=== PATIENT | male | born 1940 | race Caucasian/White ===

== ENCOUNTER → 2017-03-30 09:08 | Outpatient (CLI) | payer MEDICARE, SELFPAY ==
[2017-03-30 10:29] LABS: AST(SGOT) 25 U/L (15-37); Alanine Aminotransfer ALT/SGPT 28 U/L (16-61); Albumin, Serum 3.7 g/dL (3.2-5.0); Alkaline Phosphatase 73 U/L (45-117); Cholesterol 136 mg/dL (200); Globulin 3.2 g/dL (2.2-4.2); High Density Lipoprotein 42 mg/dL; Protein, Total 6.9 g/dL (6.4-8.2); Triglycerides 104 mg/dL; Very Low Density Lipoprotein 21 mg/dL (5-40)
== END ==
PROVIDERS: Visit Provider Physician Assistant Medical
DX: E78.5 Hyperlipidemia, unspecified (principal); Z79.899 Other long term (current) drug therapy
CPT/HCPCS: 36415; 80061; 80076

== ENCOUNTER → 2017-07-22 12:54 | Outpatient (CLI) | payer MEDICARE, SELFPAY | PROVIDERS: Visit Provider Internal Medicine Cardiovascular Disease | DX: R00.1 Bradycardia, unspecified (principal) | CPT/HCPCS: 93225; 93226 ==

== ENCOUNTER → 2017-09-28 08:36 | Outpatient (CLI) | payer MEDICARE, SELFPAY ==
[2017-09-28 09:25] LABS: AST(SGOT) 26 U/L (15-37); Alanine Aminotransfer ALT/SGPT 26 U/L (16-61); Albumin, Serum 3.9 g/dL (3.2-5.0); Alkaline Phosphatase 78 U/L (45-117); Bilirubin, Direct 0.21 mg/dL (0.00-0.30); Cholesterol 152 mg/dL (200); Globulin 3.4 g/dL (2.2-4.2); High Density Lipoprotein 51 mg/dL; Protein, Total 7.3 g/dL (6.4-8.2); Triglycerides 77 mg/dL; Very Low Density Lipoprotein 15 mg/dL (5-40)
== END ==
PROVIDERS: Visit Provider Physician Assistant Medical
DX: E78.5 Hyperlipidemia, unspecified (principal); Z79.899 Other long term (current) drug therapy
CPT/HCPCS: 36415; 80061; 80076

== ENCOUNTER 2018-02-11 05:26 | Day surgery (SDC) | payer MEDICARE, SELFPAY ==
[2018-02-05 14:55] VITALS: BMI 22.5
[2018-02-11] VITALS (7 sets, daily range): BP systolic 88–116; BP diastolic 48–59; PULSE 45–51; RESP 16–18; TEMP 35.9–36.6; O2SAT 98–100; BMI 21.6
--- NOTE | 2018-02-11 06:30 | EGD_PTH ---
PATIENT: BARRY VERGARA LOC: EN U#:[id number] AGE/SX: 77/M ROOM: RE02/11/[address]: Dr. Jarrod Gonzalez MD : 1940 BED: DIS: 02/11/2018 SPEC #: [id number] RECD: 02/11/18 07:44 STATUS: IRA KACEY #: [id number] CASS: 02/11/18 06:[address]: Jarrod Gonzalez DEPT: SURGICAL PATHOLOGY RECD BY: Lauro Martinez ENTERED: 02/11/18 11:27 SP TYPE: EGD BIOPSY OT DR: Dr. Froilan Cain MD Tissues: A - Gastric mucous membrane B - Esophageal mucous membrane Procedures: Special Stain Group II Surgery Specimen Level IV Alcian Blue/PAS (control) HEADER OPERATION: Colonoscopy, EGD ([facility] [place]) PRE-OP DIAGNOSIS: Positive Cologuard TISSUE SUBMITTED: A - Biopsy gastric antrum, H. pylori and path, B - Biopsy distal esophagus MICROSCOPIC DIAGNOSIS A. Gastric antrum, biopsy: Superficial fragments of gastric mucosa with minimal chronic inflammation. B. Distal esophagus, biopsy: Fragments of gastroesophageal mucosa with mild chronic inflammation. Intestinal metaplasia (goblet cell metaplasia) is not identified. See comment. SJ:rg 02/12/18 COMMENT A. The results of immunohistochemistry for Helicobacter pylori will be reported separately ([id number]). B. The specimen predominantly consists of squamous mucosa. Alcian blue/PAS stain with matched control is used in the evaluation of the specimen. MICROSCOPIC DESCRIPTION Slides are reviewed. GROSS DESCRIPTION A - Received in fixative is one container labeled with the patient's name and designated biopsy gastric antrum. The specimen consists of multiple irregular fragments of light [place]isi soft tissue that in aggregate measure 0.5 x 0.1 x 0.1 cm. The specimen is totally submitted in one cassette. B - Received in fixative is one container labeled with the patient's name and designated biopsy distal esophagus. The specimen consists of two irregular fragments of light parisi soft tissue that in aggregate measure 0.3 x 0.2 x 0.1 cm. The specimen is totally submitted in one cassette. / KOLBY:malia 02/11/18 TC:4 CPT: 07445 x2, 32101
--- NOTE | 2018-02-11 06:30 | IMM_PTH ---
PATIENT: BARRY VERGARA LOC: EN U#:[id number] AGE/SX: 77/M ROOM: RE02/11/[address]: Dr. Jarrod Gonzalez MD : 1940 BED: DIS: 02/11/2018 SPEC #: [id number] RECD: 02/11/18 13:29 STATUS: IRA REDel #: [id number] CASS: 02/11/18 06:[address]: Jarrod Gonzalez DEPT: IMMUNOHISTOCHEMISTRY RECD BY: Carla De Paz ENTERED: 02/11/18 13:29 SP TYPE: IMMUNO OTHR DR: Dr. Froilan Cain MD Tissues: A - Stomach, NOS Procedures: H Pylori (initial) PHYSICIAN & INSTITUTION [place] [id number] SPECIMEN INFORMATION: Tissue Source: A - Gastric antrum biopsy Clinical Info: Positive Cologuard Specimen Number: [id number] CPT code: 34791 METHODOLOGY: Deparaffinized sections of prefer/formalin-fixed tissue or PAP/DQ stained slides are incubated with monoclonal/polyclonal antibodies/oligonucleotide probes. Localization is made via biotin free immunoperoxidase method. Appropriate controls are performed and reacted as expected. Results on target cell population are indicated in the following table: RESULTS: ANTIBODY / CLONE RESULT Block A H Pylori (polyclonal) negative These tests were developed and their performance characteristics determined by [facility]. They may not have been cleared or approved by the [place]. Food and Drug Administration. The FDA has determined that such clearance or approval is not necessary. INTERPRETATION: A. Gastric antrum, biopsy: Negative for Helicobacter pylori organisms. SJ:malia 02/12/18
--- NOTE | 2018-02-11 06:59 | OP.ENDO_ITS ---
Patient Name: Larry Fofana Procedure Date: 02/11/2018 6:03 AM Date of : 1940 Age: 77 Procedure: Upper GI endoscopy Indications: Cologuard positive Providers: Jarrod Gonzalez MD Referring MD: Jarrod Gonzalez MD Medicines: See the Anesthesia note for documentation of the administered medications Complications: No immediate complications. Procedure: Pre-Anesthesia Assessment: - Prior to the procedure, a History and Physical was performed, and patient medications and allergies were reviewed. The patient's tolerance of previous anesthesia was also reviewed. The risks and benefits of the procedure and the sedation options and risks were discussed with the patient. All questions were answered, and informed consent was obtained. Prior Anticoagulants: The patient has taken no previous anticoagulant or antiplatelet agents. ASA Grade Assessment: II - A patient with mild systemic disease. After reviewing the risks and benefits, the patient was deemed in satisfactory condition to undergo the procedure. After obtaining informed consent, the endoscope was passed under direct vision. Throughout the procedure, the patient's blood pressure, pulse, and oxygen saturations were monitored continuously. The gastroscope was introduced through the mouth, and advanced to the second part of duodenum. The upper GI endoscopy was accomplished without difficulty. The patient tolerated the procedure well. Scope In: 6:29:04 AM Scope Out: 6:33:17 AM Total Procedure Duration Time 0 hours 4 minutes 13 seconds Findings: The Z-line was regular and was found 41 cm from the incisors. Biopsies were taken with a cold forceps for histology. A small hiatal hernia was present. Diffuse mildly erythematous mucosa without bleeding was found in the gastric antrum. Biopsies were taken with a cold forceps for histology. The examined duodenum was normal. Impression: - Z-line regular, 41 cm from the incisors. Biopsied. - Small hiatal hernia. - Erythematous mucosa in the antrum. Biopsied. - Normal examined duodenum. Recommendation: - Discharge patient to home. - Resume previous diet. - Continue present medications. - Telephone my office for pathology results in 1 week. Procedure Code(s): --- Professional --- 53120, Esophagogastroduodenoscopy, flexible, transoral; with biopsy, single or multiple Diagnosis Code(s): --- Professional --- K44.9, Diaphragmatic hernia without obstruction or gangrene K31.89, Other diseases of stomach and duodenum CPT copyright 2017 [employer]. All rights reserved. The codes documented in this report are preliminary and upon demurrage clerk review may be revised to meet current compliance requirements. Jarrod Gonzalez MD 02/11/2018 6:58:53 AM This report has been signed electronically. Number of Addenda: 0 Note Initiated On: 02/11/2018 6:03 AM
--- NOTE | 2018-02-11 07:01 | OP.ENDO_ITS ---
Patient Name: Larry Fofana Procedure Date: 02/11/2018 6:34 AM Date of : 1940 Age: 77 Procedure: Colonoscopy Indications: Positive Cologuard test Providers: Jarrod Gonzalez MD Referring MD: Jarrod Gonzalez MD Medicines: See the Anesthesia note for documentation of the administered medications Patient Profile: Last Colonoscopy: more than 10 years ago. Complications: No immediate complications. Procedure: Pre-Anesthesia Assessment: - Prior to the procedure, a History and Physical was performed, and patient medications and allergies were reviewed. The patient's tolerance of previous anesthesia was also reviewed. The risks and benefits of the procedure and the sedation options and risks were discussed with the patient. All questions were answered, and informed consent was obtained. Prior Anticoagulants: The patient has taken no previous anticoagulant or antiplatelet agents. ASA Grade Assessment: II - A patient with mild systemic disease. After reviewing the risks and benefits, the patient was deemed in satisfactory condition to undergo the procedure. After I obtained informed consent, the scope was passed under direct vision. Throughout the procedure, the patient's blood pressure, pulse, and oxygen saturations were monitored continuously. The colonoscope was introduced through the anus and advanced to the cecum, identified by appendiceal orifice and ileocecal valve. The colonoscopy was performed without difficulty. The patient tolerated the procedure well. The quality of the bowel preparation was good. The ileocecal valve and the appendiceal orifice were photographed. Scope In: 6:36:17 AM Scope Withdrawal Time 0 hours 6 minutes 37 seconds Scope Out: 6:52:42 AM Total Procedure Duration Time 0 hours 16 minutes 25 seconds Findings: Hemorrhoids were found on perianal exam. Scattered diverticula were found in the sigmoid colon. The exam was otherwise without abnormality. Impression: - Hemorrhoids found on perianal exam. - Diverticulosis in the sigmoid colon. - The examination was otherwise normal. - No specimens collected. Recommendation: - Discharge patient to home. - Resume previous diet. - Telephone my office for pathology results in 1 week. - Repeat colonoscopy in 10 years for screening purposes. - Continue present medications. Procedure Code(s): --- Professional --- 59577, Colonoscopy, flexible; diagnostic, including collection of specimen(s) by brushing or washing, when performed (separate procedure) Diagnosis Code(s): --- Professional --- K64.9, Unspecified hemorrhoids R19.5, Other fecal abnormalities K57.30, Diverticulosis of large intestine without perforation or abscess without bleeding CPT copyright 2017 [employer]. All rights reserved. The codes documented in this report are preliminary and upon increment manager review may be revised to meet current compliance requirements. Jarrod Gonzalez MD 02/11/2018 7:01:41 AM This report has been signed electronically. Number of Addenda: 0 Note Initiated On: 02/11/2018 6:34 AM
--- OUTSIDE RECORDS SUMMARY | 2018-03-30 00:05 | XMS RPT_ITS ---
:1940 Author Organization [facility] Support Name Relationship Address Phone STEPHANIA VERGARA Unavailable [address] + [place] [address] STEPHANIA VERGARA Unavailable [address] [address] + [place] [address] STEPHANIA VERGARA Unavailable [address] + [address] [place] [address] R Unavailable Unavailable Unavailable STEPHANIA VERGARA Unavailable [address] [address] + [address] [place] [address] R Unavailable Unavailable Unavailable STEPHANIA VERGARA Unavailable [address] [address] + [address] [place] [address] R Unavailable Unavailable Unavailable STEPHANIA VERGARA Unavailable [address] [address] + [address] [place] [address] R Unavailable Unavailable Unavailable STEPHANIA VERGARA Unavailable [address] + [address] [place] [address] R Unavailable Unavailable Unavailable STEPHANIA VERGARA Unavailable [address] + [address] [place] [address] R Unavailable Unavailable Unavailable STEPHANIA VERGARA Unavailable [address] + [address] [place] [address] R Unavailable Unavailable Unavailable STEPHANIA VERGARA Unavailable [address] + [address] [place] [address] R Unavailable Unavailable Unavailable STEPHANIA VERGARA Unavailable [address] + [address] [place] [address] R Unavailable Unavailable Unavailable STEPHANIA VERGARA Unavailable [address] + [place] [address] STEPHANIA VERGARA Unavailable [address] [place] [address] + [place] [address] STEPHANIA VERGARA Unavailable [address] [address] + [address] [place] [address] R Unavailable Unavailable Unavailable Care Team Providers Name Role Phone Jarrod Gonzalez Attending Unavailable Lisa, Jarrod Referring Unavailable Froilan Cain Primary Care Unavailable Lisa, Jarrod Attending Unavailable Whitley Cisneros Attending Unavailable Primay Care Physicia, No Primary Care Unavailable Whitley Dominguez Attending Unavailable MoodispaFroilan osorio Attending Unavailable Ba Reyes Referring Unavailable Primay Care Physicia, No Primary Care Unavailable Froilan Sigala Attending Unavailable Zakiya, Froilan Referring Unavailable Primay Care Physicia, No Primary Care Unavailable Froilan Sigala Attending Unavailable Zakiya, Froilan Referring Unavailable Whitley Cisneros Attending Unavailable Whitley Cisneros Referring Unavailable Primay Care Physicia, No Primary Care Unavailable Whitley Cisneros Attending Unavailable Primay Care Physicia, No Referring Unavailable Cebul, Jarrod Attending Unavailable Primay Care Physicia, No Referring Unavailable ZANE LAIRD MD Attending Unavailable PHYSICIAN, NONE Primary Care Unavailable SOTO STOVALL MD Attending Unavailable ANNELIESE PEREZ, DR. FROILAN Baca Primary Care Unavailable Bob Whalen Attending Unavailable PROBLEMS PROBLEMS DATE TYPE CONDITION / CODE ATTENDING STATUS SOURCE 03/16/2018 Unknown R19.5 - Other fecal Cebul, Jarrod Active [facility] abnormalities / Community R19.5(ICD-10) Hospital Repository 03/16/2018 Unknown K64.9 - Unspecified Cebul, Jarrod Active [facility] hemorrhoids / Community K64.9(ICD-10) Hospital Repository 03/16/2018 Unknown K57.30 - Cebul, Jarrod Active [facility] Diverticulosis of Community large intestine Hospital without perforation Repository or abscess without bleeding / K57.30(ICD-10) 03/16/2018 Unknown K44.9 - Cebul, Jarrod Active [facility] Diaphragmatic hernia Community without obstruction Hospital or gangrene / Repository K44.9(ICD-10) 03/16/2018 Unknown K31.89 - Other Cebul, Jarrod Active [facility] diseases of stomach Community and duodenum / Hospital K31.89(ICD-10) Repository 12/01/2017 Admitting Unknown / Koby, Active [facility] 09/28/2017 Unknown E78.5 - Cisneros, Active [facility] Hyperlipidemia, Whitley Valencia [facility] unspecified / Hospital E78.5(ICD-10) Repository 09/28/2017 Unknown Z79.899 - Other long Cisneros, Active [facility] term (current) drug [facility] therapy / Hospital Z79.899(ICD-10) Repository 08/28/2017 Unknown R00.1 - Bradycardia, [place], Active [facility] unspecified / [facility] R00.1(ICD-10) Hospital Repository 07/20/2017 Unknown I10 - Essential [place], Active [facility] (primary) [facility] hypertension / Hospital I10(ICD-10) Repository 07/20/2017 Unknown I25.2 - Old [place], Active [facility] myocardial [facility] infarction / Hospital I25.2(ICD-10) Repository 07/20/2017 Unknown Z95.5 - Presence of [place], Active [facility] coronary angioplasty [facility] implant and graft / Hospital Z95.5(ICD-10) Repository 07/20/2017 Unknown I25.10 - [place], Active [facility] Atherosclerotic [facility] heart disease of Hospital jena coronary Repository artery without angina pectoris / I25.10(ICD-10) PROCEDURES PROCEDURES No Procedure Records FoundRESULTS RESULTS OPERATIVE REPORT - Observed: 02/11/2018 Status: F Source: [facility] 7:01 AM [facility] REPOSITORY [facility] Medical Records Department [address] [place] [address] Operative Report - Endoscopy MR#: [id number] Acct: [id number] Name: BARRY VERGARA Rep #: [id number] : 1940 77 From: Jarrod Gonzalez MD PCP: Froilan Cain MD Status: [facility] Patient Name: Barry Vergara Procedure Date: 02/11/2018 6:34 AM Date of : 1940 Age: 77 Procedure: Colonoscopy Indications: Positive Cologuard test Providers: Jarrod Gonzalez MD Referring MD: Jarrod Gonzalez MD Medicines: See the Anesthesia note for documentation of the administered medications Patient Profile: Last Colonoscopy: more than 10 years ago. Complications: No immediate complications. Procedure: Pre-Anesthesia Assessment: - Prior to the procedure, a History and Physical was performed, and patient medications and allergies were reviewed. The patient's tolerance of previous anesthesia was also reviewed. The risks and benefits of the procedure and the sedation options and risks were discussed with the patient. All questions were answered, and informed consent was obtained. Prior Anticoagulants: The patient has taken no previous anticoagulant or antiplatelet agents. ASA Grade Assessment: II - A patient with mild systemic disease. After reviewing the risks and benefits, the patient was deemed in satisfactory condition to undergo the procedure. After I obtained informed consent, the scope was passed under direct vision. Throughout the procedure, the patient's blood pressure, pulse, and oxygen saturations were monitored continuously. The colonoscope was introduced through the anus and advanced to the cecum, identified by appendiceal orifice and ileocecal valve. The colonoscopy was performed without difficulty. The patient tolerated the procedure well. The quality of the bowel preparation was good. The ileocecal valve and the appendiceal orifice were photographed. Scope In: 6:36:17 AM Scope Withdrawal Time 0 hours 6 minutes 37 seconds Scope Out: 6:52:42 AM Total Procedure Duration Time 0 hours 16 minutes 25 seconds Findings: Hemorrhoids were found on perianal exam. Scattered diverticula were found in the sigmoid colon. The exam was otherwise without abnormality. Impression: - Hemorrhoids found on perianal exam. - Diverticulosis in the sigmoid colon. - The examination was otherwise normal. - No specimens collected. Recommendation: - Discharge patient to home. - Resume previous diet. - Telephone my office for pathology results in 1 week. - Repeat colonoscopy in 10 years for screening purposes. - Continue present medications. Procedure Code(s): --- Professional --- 01828, Colonoscopy, flexible; diagnostic, including collection of specimen(s) by brushing or washing, when performed (separate procedure) Diagnosis Code(s): --- Professional --- K64.9, Unspecified hemorrhoids R19.5, Other fecal abnormalities K57.30, Diverticulosis of large intestine without perforation or abscess without bleeding CPT copyright 2017 [employer]. All rights reserved. The codes documented in this report are preliminary and upon welfare project manager review may be revised to meet current compliance requirements. Jarrod Gonzalez MD 02/11/2018 7:01:41 AM This report has been signed electronically. Number of Addenda: 0 Note Initiated On: 02/11/2018 6:34 AM 02/11/18 0701 Date Jarrod Gonzalez MD Cosigner Signature: Date (if indicated) CC: Froilan Cain MD; Jarrod Gonzalez MD Date Dictated: 02/11/1834 Date Transcribed: Deburrer Strip: RELL Signed OPERATIVE REPORT - Observed: 02/11/2018 Status: F Source: [facility] 6:59 AM [facility] Medical Records Department [address] [place] [address] Operative Report - Endoscopy MR#: [id number] Acct: [id number] Name: BARRY VERGARA Rep #: [id number] : 1940 77 From: Jarrod Gonzalez MD PCP: Froilan Cain MD Status: [facility] Patient Name: Barry Vergara Procedure Date: 02/11/2018 6:03 AM Date of : 1940 Age: 77 Procedure: Upper GI endoscopy Indications: Cologuard positive Providers: Jarrod Gonzalez MD Referring MD: Jarrod Gonzalez MD Medicines: See the Anesthesia note for documentation of the administered medications Complications: No immediate complications. Procedure: Pre-Anesthesia Assessment: - Prior to the procedure, a History and Physical was performed, and patient medications and allergies were reviewed. The patient's tolerance of previous anesthesia was also reviewed. The risks and benefits of the procedure and the sedation options and risks were discussed with the patient. All questions were answered, and informed consent was obtained. Prior Anticoagulants: The patient has taken no previous anticoagulant or antiplatelet agents. ASA Grade Assessment: II - A patient with mild systemic disease. After reviewing the risks and benefits, the patient was deemed in satisfactory condition to undergo the procedure. After obtaining informed consent, the endoscope was passed under direct vision. Throughout the procedure, the patient's blood pressure, pulse, and oxygen saturations were monitored continuously. The gastroscope was introduced through the mouth, and advanced to the second part of duodenum. The upper GI endoscopy was accomplished without difficulty. The patient tolerated the procedure well. Scope In: 6:29:04 AM Scope Out: 6:33:17 AM Total Procedure Duration Time 0 hours 4 minutes 13 seconds Findings: The Z-line was regular and was found 41 cm from the incisors. Biopsies were taken with a cold forceps for histology. A small hiatal hernia was present. Diffuse mildly erythematous mucosa without bleeding was found in the gastric antrum. Biopsies were taken with a cold forceps for histology. The examined duodenum was normal. Impression: - Z-line regular, 41 cm from the incisors. Biopsied. - Small hiatal hernia. - Erythematous mucosa in the antrum. Biopsied. - Normal examined duodenum. Recommendation: - Discharge patient to home. - Resume previous diet. - Continue present medications. - Telephone my office for pathology results in 1 week. Procedure Code(s): --- Professional --- 56781, Esophagogastroduodenoscopy, flexible, transoral; with biopsy, single or multiple Diagnosis Code(s): --- Professional --- K44.9, Diaphragmatic hernia without obstruction or gangrene K31.89, Other diseases of stomach and duodenum CPT copyright 2017 [employer]. All rights reserved. The codes documented in this report are preliminary and upon welfare project manager review may be revised to meet current compliance requirements. Jarrod Gonzalez MD 02/11/2018 6:58:53 AM This report has been signed electronically. Number of Addenda: 0 Note Initiated On: 02/11/2018 6:03 AM 02/11/18 0659 Date Jarrod Gonzalez MD [facility] Signature: Date (if indicated) CC: Froilan Cain MD; Jarrod Gonzalez MD Date Dictated: 02/11/18602 Date Transcribed: Deburrer Strip: RELL Signed [facility]) Observed: 02/11/2018 Status: F Source: [facility] 6:30 AM [facility] REPOSITORY Patient: BARRY VERGARA : 1940 (77/M) Acct Num: [id number] Phys: Lisa MENDOZA,Jarrod Unit Num: [id number] Loc: EN Specimen: [id number] Received: 02/11/18743 Spec Type: EGD BIOPSY TISSUES 1 TISSUES: A. Gastric mucous membrane B. Esophageal mucous membrane COMMENT A. The results of immunohistochemistry for Helicobacter pylori will be reported separately ([id number]). B. The specimen predominantly consists of squamous mucosa. Alcian blue/PAS stain with matched control is used in the evaluation of the specimen. GROSS DESCRIPTION A - Received in fixative is one container labeled with the patient's name and designated biopsy gastric antrum. The specimen consists of multiple irregular fragments of light parisi soft tissue that in aggregate measure 0.5 x 0.1 x 0.1 cm. The specimen is totally submitted in one cassette. B - Received in fixative is one container labeled with the patient's name and designated biopsy distal esophagus. The specimen consists of two irregular fragments of light parisi soft tissue that in aggregate measure 0.3 x 0.2 x 0.1 cm. The specimen is totally submitted in one cassette. / SJ:malia 02/11/18 TC:4 CPT: 70912 x2, 26316 HEADER OPERATION: Colonoscopy, EGD ([facility]) PRE-OP DIAGNOSIS: Positive Cologuard TISSUE SUBMITTED: A - Biopsy gastric antrum, H. pylori and path, B - Biopsy distal esophagus MICROSCOPIC DESCRIPTION Slides are reviewed. MICROSCOPIC DIAGNOSIS A. Gastric antrum, biopsy: Superficial fragments of gastric mucosa with minimal chronic inflammation. B. Distal esophagus, biopsy: Fragments of gastroesophageal mucosa with mild chronic inflammation. Intestinal metaplasia (goblet cell metaplasia) is not identified. See comment. KOLBY:malia 02/12/18 Signed Anthony Schwab 02/12/18 <signature on file> Performed By: #### PEGD #### [facility] [address] [place] [address]. [place], [place], [id number] IMMUNOHISTOCHEMISTRY Observed: 02/11/2018 Status: F Source: [facility] 6:30 AM [facility] REPOSITORY Patient: BARRY VERGARA : 1940 (77/M) Acct Num: [id number] Phys: Lisa MENDOZA,Jarrod Unit Num: [id number] Loc: EN Specimen: [id number] Received: 02/11/181328 Spec Type: IMMUNO TISSUES 1 TISSUES: A. Stomach, NOS SPECIMEN INFORMATION: Tissue Source: A - Gastric antrum biopsy Clinical [facility] Number: [id number] CPT code: 33200 METHODOLOGY: Deparaffinized sections of prefer/formalin-fixed tissue or PAP/DQ stained slides are incubated with monoclonal/polyclonal antibodies/oligonucleotide probes. Localization is made via biotin free immunoperoxidase method. Appropriate controls are performed and reacted as expected. Results on target cell population are indicated in the following table: RESULTS: ANTIBODY / CLONE RESULT Block A H Pylori (polyclonal) negative These tests were developed and their performance characteristics determined by [facility]. They may not have been cleared or approved by the U.S. Food and Drug Administration. The FDA has determined that such clearance or approval is not necessary. INTERPRETATION: A. Gastric antrum, biopsy: Negative for Helicobacter pylori organisms. SJ:malia 02/12/18 PHYSICIAN AND INSTITUTION [address] [address] Signed Anthnoy Schwab 02/12/18 <signature on file> Performed By: #### PIMM #### [facility] [address] [place] [address]. [place], [place], [id number] SURGERY VISIT REPORT Observed: 02/05/2018 Status: F Source: [facility] 4:20 PM [facility] REPOSITORY [facility] [address] [place] [address] Leah. [address] [place] [address] OFFICE VISIT Date of Service: 02/05/18 MR#: [id number] Acct: [id number] Name: BARRY VERGARA Rep #: [id number] : 1940 Provider: Jarrod Gonzalez MD Age/Sex: 77/M Location: [facility] Status: Signed Intake Vital Signs02/05/18 Body Mass Index (BMI) 22.5 02/05/18 Height 5 ft 10 in Intake Visit Reasons: C-Scope Consult - Positive Cologuard Is patient in pain?: No Allergies No Known Allergies Allergy (Unverified 02/05/18 14:54) Medications aspirin 81 mg tablet,delayed release 81 mg PO QDAY 07/15/17 [History Confirmed 02/05/18] dutasteride 0.5 mg capsule 0.5 mg PO .3week cap 07/15/17 [History Confirmed 02/05/18] nitroglycerin 0.4 mg sublingual tablet 0.4 mg SUBLINGUAL Q5- 15M PRN 07/15/17 [History Confirmed 02/05/18] clopidogrel 75 mg tablet 75 mg PO QDAY #90 tab 07/20/17 [Rx Confirmed 02/05/18] silodosin 4 mg capsule 8 mg PO QDAY cap 07/20/17 [History Confirmed 02/05/18] simvastatin 80 mg tablet 80 mg PO QPM #90 tab 07/20/17 [Rx Confirmed 02/05/18] lisinopril 2.5 mg tablet 2.5 mg PO QDAY #90 tab 09/18/17 [Rx Confirmed 02/05/18] metoprolol tartrate 25 mg tablet 12.5 mg PO BID #90 tab 09/22/17 [Rx Confirmed 02/05/18] [facility] Medical History Long-term use of high-risk medication (Chronic) Hyperlipidemia (Chronic) Hypertension (Chronic) History of myocardial infarction (Acute) Angina pectoris (Acute) Claudication, intermittent (Acute) 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 The patient is referred by Dr. Froilan Cain and a written copy of my surgical consult recommendations will be returned to him The patient is retired from working construction. He had a masters degree. 20 years or more ago his last time he had a colonoscopy. He has no family history of colon polyps or colon cancer. He proceeded with a Lebec guard test which was positive. It is of note that the patient is on clopidogrel and aspirin. He denies bright red blood per rectum or melena. He had a myocardial infarction in 2009. Because of chest discomfort with stress August 2015 he had an additional coronary stent placed. He has a total of [address] He currently is able to climb a flight of stairs with no symptoms. He is actively involved with routine exercise. He has not had any unusual weight loss. He denies personal history of peptic ulcer disease. ROS General General: No weight change, appetite, fatigue, colon cancer, breast cancer or weakness HEENT HEENT: No difficulty swallowing, eye injury, eye surgery, swollen glands or hoarseness Endo Endocrine: No thyroid disease, diabetes mellitus, thyroid cancer, Hair loss, heat intolerance or cold intolerance Skin Skin: Yes changing moles; no rash Breast Breast: No left breast lump, right breast lump, nipple discharge, breast pain, abnormal mammogram, abnormal US or breast enlargement Musc Musculoskeletal: No back problems, arthritis, rheumatoid arthritis, gout or joint pain Cardio Cardiovascular: Yes high blood pressure, heart attack and heart stent; no murmur, pacemaker, heart disease, atrial fibrillation, palpitations, shortness of breat with exertion or chest pain Psych Psychiatric: No depression, anxiety or hearing voices Resp Respiratory: No shortness of breath, No sleep apnea, No cough, No COPD, No asthma, No emphysema, No wheezing Gastro Gastrointestinal: No abdominal pain, No nausea or vomiting, No diarrhea, No constipation, No blood in stool, No acid reflux, Yes hemorrhoids, No ulcers, No gallbladder problem, No black,tarry stools Ravinder Hematologic: Yes blood thinners, No blood disorders, No bleeding, No anemia, No blood clots Neuro Neurologic: No system reviewed and no additional complaints, except as docu, No as per HPI, No abnormal walking, No abnormal hearing, No abnormal movements, No abnormal speech, No behavioral changes, No burning sensations, No confusion, No seizure-like activity, No unsteadiness, No dizziness, No localized weakness, No frequent falls, No headache(s), No lack of coordination, No loss of vision, No memory loss, No numbness, No other visual disturbances, No radiating pain, No restless legs, No sensory deficit, No fainting, No tingling, No tremor(s), No weakness, No other Exam Const General: cooperative, healthy appearing, comfortable, no acute distress Nutritional Appearance: average body habitus Orientation: alert, awake, oriented x3 HENMT Head: normal to inspection Eyes General: appearance normal, both eyes and all related structures Chest Chest palpation AND inspection: normal inspection of the chest Breast Palpation: No nipple discharge Resp Effort AND Inspection: normal respiratory effort Auscultation: clear to auscultation bilaterally Cardio Rate: regular rate Rhythm: regular rhythm Heart Sounds: no murmurs GI Palpation: soft, no hepatosplenomegaly Auscultation: normal bowel sounds Skin Lesions: no lesions Neuro Cranial Nerves: CN's II-XI intact bilaterally Extrem General: no clubbing, cyanosis or edema Psych Affect: normal affect Assessment AND Plan Problems 1. Positive colorectal cancer screening using Cologuard test R19.5 Plan I am recommending to the patient a esophagogastroduodenoscopy with possible biopsy or polypectomy and colonoscopy with possible biopsy or polypectomy is indicated. He is aware of the technique, benefits, risks, alternatives. The cologuard test contains a hemoglobin component. He has had an opportunity to ask and have questions answered. He will hold his clopidogrel the evening before. He will continue his aspirin. Because of his cardiac history we will utilize monitored anesthesia care. I very much appreciate the kind opportunity of assisting with his surgical care CC: Dr. Froilan oGnzalez M.D., F.A.C.S. Orders Orders: Coding Level of Care Code Exp prob focused,strt fwd Diagnoses Positive colorectal cancer screening using Cologuard test R19.5 02/05/18 1620 <Electronically signed by Jarrod Gonzalez MD> Date Jarrod Gonzalez MD Cosigner Signature: Date (if applicable) CC: Froilan Cian CARDIOLOGY VISIT Observed: 01/15/2018 Status: F Source: [facility] 9:51 AM [facility] REPOSITORY [facility] [address] [place] [address] OFFICE VISIT Date of Service: 01/15/18 MR#: [id number] Acct: [id number] Name: BARRY VERGARA Rep #: [id number] : 1940 Provider: Whitley Cisneros Age/Sex: 77/M Location: [facility] Status: Signed HPI HPI Details: BARRY VERGARA, is a 77 M who presents to the office today for a cardiovascular follow-up. He has a history of coronary artery disease with stenting to his RCA in 2009 and subsequent stenting to his LAD and OM in 2011 and stenting to his RCA in 2016. 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 He does have a history of hypertension, hyperlipidemia and ischemic cardiomyopathy. From a cardiac standpoint, patient is doing well. He does not have any chest discomfort/heaviness/tightness. His exercise tolerance is stable for his age. He does not have any worsening symptoms of shortness of breath. He denies any PND. He does not have any orthopnea. He does not have any symptoms of congestive heart failure. He does not have any palpitations that he is aware of. He does not have any lightheadedness or dizziness. He does not have any near-syncope or syncope. He does not have any lower extremity edema. He does have some symptoms of claudication- this has improved. Intake Vital Signs01/15/18 Height 5 ft 10 in Intake Visit Reasons: 6 M FU Is patient in pain?: No Allergies No Known Allergies Allergy (Unverified 07/20/17 10:25) Medications aspirin 81 mg tablet,delayed release 81 mg PO QDAY 07/15/17 [History Confirmed 01/15/18] dutasteride 0.5 mg capsule 0.5 mg PO .3week cap 07/15/17 [History Confirmed 01/15/18] nitroglycerin 0.4 mg sublingual tablet 0.4 mg SUBLINGUAL Q5- 15M PRN 07/15/17 [History Confirmed 01/15/18] clopidogrel 75 mg tablet 75 mg PO QDAY #90 tab 07/20/17 [Rx Confirmed 01/15/18] silodosin 4 mg capsule 8 mg PO QDAY cap 07/20/17 [History Confirmed 01/15/18] simvastatin 80 mg tablet 80 mg PO QPM #90 tab 07/20/17 [Rx Confirmed 01/15/18] lisinopril 2.5 mg tablet 2.5 mg PO QDAY #90 tab 09/18/17 [Rx Confirmed 01/15/18] metoprolol tartrate 25 mg tablet 12.5 mg PO BID #90 tab 09/22/17 [Rx Confirmed 01/15/18] FOR[facility]LY [facility] Medical History Long-term use of high-risk medication (Chronic) Hyperlipidemia (Chronic) Hypertension (Chronic) History of myocardial infarction (Acute) Angina pectoris (Acute) Claudication, intermittent (Acute) 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) Surgical History Presence of stent in coronary artery (Chronic) Postsurgical percutaneous transluminal coronary angioplasty (PTCA) status (Chronic) History of hernia repair (Resolved) Family History Father Heart disease Mother CVA (cerebral vascular accident) Hypertension Brother CAD (coronary artery disease) Myocardial infarction, Onset Age: 25 Hx of CABG Social History Smoking Status: Never smoker alcohol intake: never substance use type: does not use ROS Const Const: Negative for weakness, fatigue, fever(s) or headache(s) Eyes Eyes: Negative for blind spots, loss of peripheral vision or transient loss of vision ENT ENT: Negative for headache(s), dizziness, tinnitus or Nosebleed/epistaxis Cardio Chest Pain: No Palpitations: No Edema: None Muscle aches with walking: Bilateral Resp Respiratory: Negative for SOB with activity, SOB at rest, SOB orthopnea\SOB lying down or Cough GI GI: Negative nausea, vomiting, heartburn or vomiting blood/hematemesis : Negative for hematuria Musc Musc: Positive for muscle aches/ myalgia Neuro Neuro: Negative for weakness, headache(s), dizziness, near syncope, syncope, lightheadedness or orthostatic symptoms Ravinder Hematologic/Lymphatic: Negative for easy bleeding Endo Endo: Negative for fatigue Cardiology Exam Const Appearance: cooperative, no acute distress and well developed Orientation: alert, awake and oriented x3 Head Head: normocephalic and atraumatic Mouth: moist mucous membranes Eyes General: appearance normal, both eyes and all related structures Conjunctivae: conjunctivae normal Pupils: PERRL EOM: EOM intact bilaterally Neck Neck: normal visual inspection, no lymphadenopathy and no JVD Carotids: Negative bruit Neck Mass: Negative Neck mass Chest Chest inspection: normal inspection of the chest and symmetric chest movement Auscultation: Bilateral: Clear to Auscultation Cardio Palpation: normal PMI Rate: regular rate Rhythm: regular rhythm Heart sounds: S1 normal and S2 normal; negative rub, gallop or murmur GI GI: normal to inspection, soft, no hepatosplenomegaly and bowel sounds present; negative tender Neuro General: alert, awake, oriented x3, CN's II-XI intact bilaterally and moves all extremities Extremities Pulses: Normal: Right Posterior Tibial Pulse, Left Posterior Tibial Pulse, Right Radial Pulse, Left Radial Pulse Lower Extremity Edema: None: Bilateral Psych Psychological: normal affect Supplemental Info Patient did undergo a heart catheterization on 08/17/2015. This was for continued chest discomfort despite a negative stress test that was noted in December 2014. Heart catheterization demonstrated widely patent stents to the LAD, obtuse marginal and distal RCA however a new high-grade lesion of the midportion of his RCA was noted. He underwent successful angioplasty and drug-eluting stenting of the mid RCA. Echocardiogram in 2011 demonstrated estimated ejection fraction of 60%. Left atrium mildly enlarged. Trivial mitral and tricuspid insufficiency. Assessment AND Plan 1. 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 We recommend that they continue with current aggressive medical management and risk factor modification. 2. Essential hypertension I10 Plan Blood pressure is well controlled on current medications, we do not recommend any changes at this time. 3. Pure hypercholesterolemia E78.00; E78.0 Plan Recent lipid profile demonstrates total cholesterol 152, HDL 51, LDL 86. Patient will continue with current high-dose statin therapy. We will continue to monitor. 4. Claudication, intermittent I73.9 Plan This is stabilized. He will continue to follow with vascular for this. 5. 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 He will continue with current aggressive medical management. Plan Detail Additional Comments Thank you for allowing us to participate in the patients plan of care, if you have any questions please do not hesitate to call. This note was generated using a voice recognition system and there may be incorrect words, spelling or punctuation that were not noted when reviewing the office note prior to saving. Follow Up 1 Year (PFM) Coding Level of Care Code Off vis,est,level 3 Diagnoses Atherosclerosis of jena coronary artery of jena heart without angina pectoris I25.10 [place] vs. 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 01/15/18 0951 <Electronically signed by Whitley MULLINS> Date Whitley Ochoa Signature: Date (if applicable) CC: Froilan Cain MD PSA Collected: 12/01/2017 Status: F Source: [facility] 12:00 PM [facility] REPOSITORY TYPE CODE TESTS RESULT OUT OF RANGE REFERENCE UNITS LAB L500.04351 0.0-4.0 NG/ML Normal PSA 1.93 Performed By: #### L500.07554 #### [facility] [address] [place] [address] LIVER PROFILE Collected: 09/28/2017 Status: F Source: [place] 8:40 AM [facility] REPOSITORY TYPE CODE TESTS RESULT OUT OF RANGE REFERENCE UNITS LAB L501.1500 6.4-8.2 g/dL Normal T PROT 7.3 LAB L501.1800 3.2-5.0 g/dL Normal ALB 3.9 LAB L501.1950 2.2-4.2 g/dL Normal GLOB 3.4 LAB L501.4100 15-37 U/L Normal AST 26 LAB L501.4305 45-117 U/L Normal ALK P 78 LAB L501.4405 16-61 U/L Normal ALT 26 LAB L501.4600 0.20-1.00 mg/dL Normal T BILI 1.00 LAB L501.4700 0.00-0.30 mg/dL Normal D BILI 0.21 Performed By: #### L500.3400, L500.4100 #### [facility] [address] [place], [address] LIPID PROFILE Collected: 09/28/2017 Status: F Source: [place] 8:40 AM [facility] REPOSITORY TYPE CODE TESTS RESULT OUT OF RANGE REFERENCE UNITS LAB L501.4900 200 mg/dL Normal CHOL 152 Result Comment: <200 mg/dL Desirable 200-240 mg/dL Borderline >240 mg/dL High Risk LAB L501.5000 mg/dL Normal TRIG 77 Result Comment: The drugs N-Acetylcysteine and Metamizole may falsely depress this assay. Serum Triglycerides Reference Interval Normal <150 mg/dL Borderline high 150 - 199 mg/dL High 200 - 499 mg/dL Very High > or = 500 mg/dL LAB L501.6400 mg/dL Normal HDL 51 Result Comment: The drugs N-Acetylcysteine and Metamizole may falsely depress this assay. Reference Range HDL <40 mg/dL Low HDL Cholesterol HDL >or= 60 mg/dL High HDL Cholesterol LAB L501.6500 0-130 mg/dL Normal LDL 86 LAB L501.6600 5-40 mg/dL Normal VLDL 15 Performed By: #### L500.3400, L500.4100 #### [facility] [address] [place], [address] CARDIOLOGY VISIT Observed: 07/20/2017 Status: F Source: [place] REPORT 11:20 AM [facility] REPOSITORY [facility] [address] [place] [address] OFFICE VISIT Date of Service: 07/20/17 MR#: [id number] Acct: [id number] Name: BARRY VERGARA Rep #: [id number] : 1940 Provider: Froilan Sigala MD Age/Sex: 77/M Location: [facility] Status: Signed HPI HPI Details: BARRY VERGARA, is a 77 M who presents to the office today for who presents for outpatient cardiovascular follow-up of his history of underlying CAD status post RCA PCI in 2009, status post LAD and OM PCI/EMIR in 2011, and status post RCA PCI in 2016 with an additional history of an underlying ischemic mediated cardiomyopathy, sinus bradycardia, hyperlipidemia, and hypertension. He states at the present time he has been doing well. He denies any ongoing symptoms of classic angina pectoris at rest or with exertion. There has been no obvious episodes of CHF or pulmonary edema. There has been no near syncope or syncope. He states that he is able to perform his activities of daily living without difficulty. He was noted on examination today to have a slower than usual heart rate. An ECG was obtained. He had sinus bradycardia with a ventricular rate in the low 40s. He had no acute ECG changes. He states he does check his heart rate and blood pressure at home. He notes this is somewhat lower than his usual heart rate at home. Intake Vital Signs07/20/17 Height 5 ft 10 in 07/20/17 Weight: 158 lb 07/20/17 Body Mass Index (BMI) 22.6 07/20/17 Blood Pressure 132/62 Intake Visit Reasons: 6 M FU Allergies No Known Allergies Allergy (Unverified 07/20/17 10:25) Medications aspirin 81 mg tablet,delayed release 81 mg PO QDAY 07/15/17 [History Confirmed 07/20/17] dutasteride 0.5 mg capsule 0.5 mg PO .3week cap 07/15/17 [History Confirmed 07/20/17] lisinopril 2.5 mg tablet 2.5 mg PO QDAY 07/15/17 [History Confirmed 07/20/17] metoprolol tartrate 25 mg tablet 12.5 mg PO BID tab 07/15/17 [History Confirmed 07/20/17] nitroglycerin 0.4 mg sublingual tablet 0.4 mg SUBLINGUAL Q5- 15M PRN 07/15/17 [History Confirmed 07/20/17] clopidogrel 75 mg tablet 75 mg PO QDAY #90 tab 07/20/17 [Rx Confirmed 07/20/17] silodosin 4 mg capsule 8 mg PO QDAY cap 07/20/17 [History Confirmed 07/20/17] simvastatin 80 mg tablet 80 mg PO QPM #90 tab 07/20/17 [Rx Confirmed 07/20/17] [facility] Medical History Presence of stent in coronary artery (Chronic) Long-term use of high-risk medication (Chronic) Hyperlipidemia (Chronic) Hypertension (Chronic) History of myocardial infarction (Acute) Angina pectoris (Acute) Claudication, intermittent (Acute) 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) Surgical History Postsurgical percutaneous transluminal coronary angioplasty (PTCA) status (Chronic) History of hernia repair (Resolved) Family History Father Heart disease Mother CVA (cerebral vascular accident) Hypertension Brother CAD (coronary artery disease) Myocardial infarction, Onset Age: 25 Hx of CABG Social History Smoking Status: Never smoker alcohol intake: never substance use type: does not use ROS Const Const: Negative for fatigue, weakness, weight gain, weight loss, frequent falls or excessive sweating Eyes Eyes: Negative for change in vision, blurry vision or transient loss of vision ENT ENT: Negative for dizziness or balance problems Cardio Chest Pain: No Palpitations: No Edema: None Muscle aches with walking: None Resp Respiratory: Negative for SOB with activity or SOB at rest GI GI: Negative vomiting or vomiting blood/hematemesis : Negative for hematuria Musc Musc: Negative for balance problems, muscle aches/ myalgia, muscle weakness or joint pain Skin Skin: Negative non-healing lesions or rash Neuro Neuro: Negative for weakness, blurry vision, dizziness, lightheadedness, frequent falls or orthostatic symptoms Ravinder Hematologic/Lymphatic: Negative for easy bleeding Endo Endo: Negative for fatigue or excessive sweating Psych Psych: Negative for anxiety or depression Allergy Allergy/Immunology: Negative for hives, Negative for rash Cardiology Exam Const Appearance: cooperative, healthy appearing, comfortable, no acute distress, well developed and well groomed Nutritional Appearance: thin Orientation: alert and awake Head Head: normal to inspection, normocephalic and atraumatic Ears: hearing grossly normal bilaterally Nose: external nose normal Face and Sinus: face symmetric Mouth: oral mucosae normal Teeth and gingiva: fair dentition Eyes General: appearance normal, both eyes and all related structures Eyelids: eyelids normal Conjunctivae: conjunctivae normal Pupils: PERRL EOM: EOM intact bilaterally Neck Neck: normal visual inspection and full ROM Carotids: normal carotid upstroke Chest Chest inspection: normal inspection of the chest and symmetric chest movement Auscultation: Bilateral: Clear to Auscultation Cardio Palpation: normal PMI Rate: regular rate Rhythm: regular rhythm Heart sounds: S1 normal, S2 normal and positive S4 GI GI: normal to inspection, bowel sounds present, soft and no hepatosplenomegaly Neuro General: alert, awake, oriented x3, gait normal, moves all extremities, no focal sensory deficit and no focal motor deficits Skin Skin: no rashes or lesions noted Extremities Pulses: Normal: Right Radial Pulse, Left Radial Pulse Lower Extremity Edema: None: Bilateral Psych Psychological: normal affect Supplemental Info His previous transthoracic echocardiogram performed at [facility] on 10/17/2011 demonstrated the following. Interpretation Summary Segmental dysfunction with preserved ejection fraction (see wall motion). The estimated ejection fraction is 60 %. Apical false tendon noted. The left atrium is mildly enlarged. Trivial mitral valve insufficiency. Trivial tricuspid valve insufficiency. Right ventricular systolic pressure estimated to he 27 mmHg. His previous [facility] stress test was performed on 01/30/2015. The results are as noted below. EXERCISE TOLERANCE TEST: The patient exercised on a Evin protocol for 10 minutes completing stage 3 and 1 minute of stage 4, achieving a peak heart rate of 141 beats per minute (95% predicted maximum heart rate) and a peak blood pressure of 158/78 mmHg and a peak MET capacity of approximately 11 METS. The baseline ECG demonstrated normal sinus rhythm. The peak exercise ECG demonstrated somatic/motion artifact with approximately 0.5 to 1.0 mm of horizontal/upsloping ST-segment depression in leads V4 through V6 with resolution towards baseline beginning less than 1 minute in recovery. There were no cardiac dysrhythmias pretest, during exercise, or recovery. The functional capacity was considered good. The patient had no complaint of chest discomfort during exercise or recovery. The examination was discontinued secondary to dyspnea. IMPRESSION: 1. Technically adequate (percent predicted maximum heart rate greater than 85%) exercise tolerance test. 2. Peak exercise ECG with somatic/motion artifact with approximately 0.5 to 1.0 mm of horizontal/upsloping ST-segment depression in leads V4 through V6 with resolution towards baseline beginning less than 1 minute in recovery. 3. Nuclear images pending. MYOCARDIAL PERFUSION IMAGING STUDY: TECHNIQUE: The patient was injected with 11.5 mCi of Tc99m Cardiolite and subsequently rest SPECT Cardiolite nuclear imaging was obtained in the horizontal long, vertical long and short axes views. The patient exercised on a Evin protocol for 10 minutes completing stage 3 and 1 minute of stage 4, achieving a peak heart rate of 141 beats per minute (95% predicted maximum heart rate) and a peak blood pressure of 158/78 mmHg and a peak MET capacity of 11 METS. The patient was injected with 33.3 mCi of Tc99m Cardiolite and subsequently stress SPECT Cardiolite nuclear imaging was obtained in the horizontal long, vertical long and short axes views. A gated Cardiolite study at peak stress was obtained. INTERPRETATION: Rest and stress SPECT Cardiolite nuclear imaging, status post realignment and normalization, demonstrate areas of diminished tracer uptake in portions of the basal inferoseptal and basal inferior segments extending toward the mid inferior segments which appears to be somewhat more prominent on the resting views as opposed to the stress views. Otherwise, there appears to be relative uniform tracer uptake. There is notation of end systolic thickening and brightening. The gated Cardiolite study demonstrates myocardial thickening and inward wall motion. The reported LVEF is 65%. The aforementioned changes appear compatible with the effects of shifting soft tissue attenuation/artifact and/or gastrointestinal tracer uptake/detraction being more prominent at rest as opposed to stress with no myocardial perfusion changes considered diagnostic for stress-induced myocardial ischemia or previous myocardial injury/infarction. IMPRESSION: 1. Rest and stress SPECT Cardiolite nuclear imaging demonstrate myocardial perfusion changes appearing compatible with the effects of shifting soft tissue attenuation/artifact and/or gastrointestinal tracer uptake/detraction being more prominent at rest as opposed to stress with no myocardial perfusion changes considered diagnostic for stress-induced myocardial ischemia or previous myocardial injury/infarction. 2. The gated Cardiolite study reports an LVEF of 65%. He had a previous diagnostic cardiac catheterization performed at [facility] 11/05/2011. The results are as noted below. Impression: Severe two vessel coronary artery disease, 50 to 75% and 75 to 95% stenosis in the proximal to mid left anterior descending artery. 85% stenosis in the proximal first obtuse marginal artery. Patent preexisting stent in the mid to distal right coronary artery. The left ventricular ejection fraction was 60%. Mild hypokinesis of the inferobasal wall of the left ventricle. Plan: Optimal medical therapy of the patients disease. Aggressive risk factor modification. Results discussed with patient, patients family and canoe inspector final (Zachery Campbell M.D.). Consider further evaluation of the underlying CAD with additional catheter based diagnostic studies such as FFR I IVUS and PCI as deemed appropriate. He had a previous PCI at [facility] 11/05/2011. The results are as noted below. Impression: Successful stenting of the 70% stenosis in the mid to distal left anterior descending artery. Successful stenting of the 80% stenosis in the proximal first obtuse marginal artery. Plan: Begin an exercise program. Clopidogrel (Plavix) 75 mg P0 daily for 1 year. Optimal medical therapy of the patients disease. Aggressive risk factor modification. He also underwent repeat diagnostic cardiac catheterization/PCI at [facility] on 08/16/2015. The summary is as noted below. The patient underwent left heart catheterization at [facility] [place], which demonstrated widely patent stents to his LAD, obtuse marginal and distal RCA. However, he had a new high-grade lesion in his mid portion of his right coronary artery upstream from his previously placed stents. The patient underwent a successful angioplasty and drug-eluting stent of his mid right coronary artery yesterday by myself receiving a 4.0 x 20 Synergy drug-eluting stent with an excellent result. This was postdilated with a 4.0 noncompliant balloon to ensure proper apposition. Assessment AND Plan 1. 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 He will continue his current risk factor modification and medical management. It was not felt he required further cardiac diagnostic studies or therapeutic intervention with respect to his underlying CAD process. Orders Orders: 2. Presence of stent in coronary artery Z95.5 PTCA/Stent of distal RCA 01/23/10; PTCA/EMIR of the LAD and OM1 11/2011; PCI/EMIR to Mid RCA 08/16/15 Plan He does have a history of multiple PCI's in the past. He states he has been doing well since his most recent one. Again he will continue his current medical management and follow-up. Orders Orders: 3. Sinus bradycardia R00.1 Plan He does have sinus bradycardia. His ventricular rate appears to be somewhat slower than usual. He will be further assessed with a 24-hour Holter monitor. This may lead to adjustment of his medications. Orders Orders: 4. Hyperlipidemia, unspecified hyperlipidemia type E78.5 Plan His lipid profile was evaluated in March 2017. His cholesterol is 136 with an LDL of 73, and HDL 42, triglyceride level of 104. 5. Essential hypertension I10 Plan His blood pressure appears to be recently well controlled. He will continue medical therapy and follow-up. Orders Orders: 6. Long-term use of high-risk medication Z79.899 Plan He will continue medical management. He will follow-up laboratory studies as deemed appropriate. Plan Detail Other Orders Orders: Other Medications New: Additional Comments He will be scheduled for an outpatient cardio vascular visit approximately 6 months unless needed sooner. Thank you for allowing me to participate in the care of your patient. Please don't hesitate to call if any issues arise. This note was generated using a voice recognition system and there may be incorrect words, spelling or punctuation that were not noted when reviewing the office note prior to saving. 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.10 Presence of stent in coronary artery Z95.5 Sinus bradycardia R00.1 Hyperlipidemia, unspecified hyperlipidemia type E78.5 Hyperlipidemia type: unspecified Essential hypertension I10 Hypertension type: essential hypertension Long-term use of high-risk medication Z79.899 Coding Level of Care Code Off vis,est,level 4 Diagnoses Atherosclerotic heart disease of jena coronary artery without angina pectoris I25.10 Presence of stent in coronary artery Z95.5 Sinus bradycardia R00.1 Hyperlipidemia, unspecified hyperlipidemia type E78.5 Hyperlipidemia type: unspecified Essential hypertension I10 Hypertension type: essential hypertension Long-term use of high-risk medication Z79.899 07/20/17 1120 <Electronically signed by Froilan Sigala MD> Date Froilan Sigala MD Cosigner Signature: Date (if applicable) CC: Ba Reyes MD 12 LEAD EKG PERFORMED Observed: 07/20/2017 Status: F Source: [facility] [place] [facility] 10:32 AM [facility] REPOSITORY [facility] [address] [place] [id number] 12 Lead EKG performed by RIO 07/20/17 1032 MR#: [id number] Acct: [id number] Name: BARRY VERGARA Rep #: [id number] : 1940 77 From: Froilan Sigala MD Attending Dr: Forilan Sigala MD Status: DEP AMB Ordering Dr: Froilan Sigala MD Date: 07/20/17 Location: [facility] Sex: M C Admitted: [facility]/12 Lead EKG performed by [facility] ECG Report Interpretation Marked sinus Bradycardia Electronically signed on 07/20/2017 at 11:36 by Froilan Sigala 07/20/17 1140 Date Froilan Sigala MD CC: No Primary Care Physician Date Dictated: 07/20/17 1032 Date Transcribed: 07/20/17 [address] [place] Strip: PM Signed VL CAROTID BILATERAL Observed: 06/03/2017 Status: F Source: [facility] 9:04 AM [facility] REPOSITORY ORIGINAL Carotid duplex examination using B-mode, color flow and spectral Doppler CLINICAL STATEMENT: htn, stenosis,. COMPARISON: 07/04/2016 Stenosis grading is reported using the following scheme, unless otherwise specified: Normal: No stenosis Mild: 1-49% stenosis Moderate: 50-69% stenosis Severe: 70-99% stenosis Occluded FINDINGS: Scattered areas of calcific and noncalcified atherosclerosis noted. Morphologically, the proximal right ICA is 61% stenotic. Morphologically, the proximal left ICA is approximately 15% stenotic. RIGHT SIDE: CCA PSV: 94 cm/s ICA PSV: 160 cm/s ICA/CCA ratio: 1.70 ECA PSV: 166 cm/s Vertebral artery: Antegrade Subclavian artery: Antegrade LEFT SIDE: CCA PSV: 83 cm/s ICA PSV: 92 cm/s ICA/CCA ratio: 220 ECA PSV: 1.10 cm/s Vertebral artery: Antegrade Subclavian artery: Antegrade IMPRESSION: 50-69% right ICA stenosis, not significantly changed from previous exam. No hemodynamically significant left ICA stenosis. I have personally reviewed the images of this examination and agree with the resident's findings and interpretation. Interpreted By: Mark Lu MD Preliminary Report By: Sekou Salazar DO Electronically Signed By: Mark Lu MD Dictated Date: 06/03/2017 10:51:44 AM Prelim Date: 06/03/2017 11:33:23 AM Sign Date: 06/03/2017 11:36:02 AM VL ARTERIAL BILATERAL Observed: 06/03/2017 Status: F Source: [facility] LOWER EXT PVR 9:04 AM [facility] REPOSITORY ORIGINAL VL ARTERIAL BILATERAL LOWER EXT PVR CLINICAL INDICATION: htn, stenosis, COMPARISON: 07/04/2016 Technique: Doppler evaluation of bilateral lower extremity arteries performed. Pulse volume recordings also performed of both lower extremities. FINDINGS: Segmental BP (mm Hg): RIGHT: Brachial: 123 Index High Thigh: 132 1.01 Low Thigh: 127 0.97 Calf: 127 0.97 Ankle (PT): 121 0.92 Ankle (DP): 114 0.87 Digit: 110 0.84 YANI: 0.92 (previously 0.93) TBI: 0.78 Triphasic waveform is noted to the level of the popliteal artery. Posterior tibial, dorsalis pedis, and digital arteries demonstrate biphasic waveforms. Pulse volume recordings demonstrate normal amplitude and morphology to the level of the ankle. The digital arteries demonstrate diminished amplitude. LEFT: Brachial: 131 Index High Thigh: 162 1.24 Low Thigh: 139 1.06 Calf: 132 1.01 Ankle (PT): 118 0.90 Ankle (DP): 81 0.62 Digit: 86 0.66 YANI: 0.90 (previously 0.95 was present TBI: 0.79 Triphasic waveform is noted to the level of the popliteal artery. Posterior tibial, dorsalis pedis, and digital arteries demonstrate biphasic waveforms. Pulse volume recordings demonstrate normal amplitude and morphology to the level of the ankle. The digital arteries demonstrate diminished amplitude. IMPRESSION: 1. No acute finding. 2. YANI not significantly changed from the previous exam I have personally reviewed the images of this examination and agree with the resident's findings and interpretation. Interpreted By: Mark Lu MD Preliminary Report By: Sekou Salazar DO Electronically Signed By: Mark Lu MD Dictated Date: 06/03/2017 11:04:22 AM Prelim Date: 06/03/2017 11:34:50 AM Sign Date: 06/03/2017 11:36:10 AM LIVER PROFILE Collected: 03/30/2017 Status: F Source: [place] 9:14 AM [facility] REPOSITORY Order Comment: Order Date: 08/29/16 Order Info: 0788-1 - *Hepatic Function Panel Order Info: [id number] - *Lipid Profile CC PCP Comments: 12 hours fasting, may have water. TYPE CODE TESTS RESULT OUT OF RANGE REFERENCE UNITS LAB L501.1500 6.4-8.2 g/dL Normal T PROT 6.9 LAB L501.1800 3.2-5.0 g/dL Normal ALB 3.7 LAB L501.1950 2.2-4.2 g/dL Normal GLOB 3.2 LAB L501.4100 15-37 U/L Normal AST 25 LAB L501.4305 45-117 U/L Normal ALK P 73 LAB L501.4405 16-61 U/L Normal ALT 28 Result Comment: Please note revised ALT reference range effective 2017. LAB L501.4600 0.20-1.00 mg/dL High T BILI 1.20 LAB L501.4700 0.00-0.30 mg/dL Normal D BILI 0.30 Performed By: #### L500.3400 #### [facility] [address] [place], [address] LIPID PROFILE Collected: 03/30/2017 Status: F Source: [place] 9:14 AM [facility] REPOSITORY Order Comment: Order Date: 08/29/16 Order Info: [id number] - *Hepatic Function Panel Order Info: [id number] - *Lipid Profile CC PCP Comments: 12 hours fasting, may have water. TYPE CODE TESTS RESULT OUT OF RANGE REFERENCE UNITS LAB L501.4900 200 mg/dL Normal CHOL 136 Result Comment: <200 mg/dL Desirable 200-240 mg/dL Borderline >240 mg/dL High Risk LAB L501.5000 mg/dL Normal TRIG 104 Result Comment: The drugs N-Acetylcysteine and Metamizole may falsely depress this assay. Serum Triglycerides Reference Interval Normal <150 mg/dL Borderline high 150 - 199 mg/dL High 200 - 499 mg/dL Very High > or = 500 mg/dL LAB L501.6400 mg/dL Normal HDL 42 Result Comment: The drugs N-Acetylcysteine and Metamizole may falsely depress this assay. Reference Range HDL <40 mg/dL Low HDL Cholesterol HDL >or= 60 mg/dL High HDL Cholesterol LAB L501.6500 0-130 mg/dL Normal LDL 73 LAB L501.6600 5-40 mg/dL Normal VLDL 21 Performed By: #### L500.4100 #### [facility] [address] [place], [address] ALLERGIES ALLERGIES DATE TYPE / CODE NAME / CODE REACTION SEVERITY SOURCE 02/10/2018 Drug No Known Unknown [facility] Allergy/4160 Allergies/F00 Hospital [address](SNOMED 2118174(RXNOR Repository CT) M) ENCOUNTERS ENCOUNTERS ADMIT/DISCHARGE ACCOUNT NUMBER ADMITTING ENCOUNTER LOCATION SOURCE CLASS 02/28/2018/02/29/20 [id number] Emergency BBuilding:[address] Repository 02/11/2018/02/12/20 [id number] Ambulatory [address] ding:ENRoom: Repository AC10 02/11/2018/02/12/20 [id number] Ambulatory BMSBuilding: [place] 18 BMS.CF.[facility] Repository 02/05/2018/02/06/20 [id number] Ambulatory BMSBuilding: [place] 18 BMS.[facility] Repository 01/15/2018/01/16/20 [id number] Ambulatory BMSBuilding: [place] 18 BMS.[facility] Repository 12/01/2017 [id number] [facility] ng:HVAISHNAVI 09/28/2017 [id number] Ambulatory [facility] ding:LAB Repository 07/22/2017 [id number] Ambulatory [facility] ding:PSN Repository 07/22/2017 [id number] Ambulatory BMSBuilding: [place] [facility] Repository 07/20/2017/07/21/19 [id number] Ambulatory BMSBuilding: [place] 18 BMS.[facility] Repository 07/15/2017 [id number] Ambulatory BMSBuilding: [place] BMS.[facility] Repository 06/03/2017/06/04/19 [id number] Ambulatory [address] ding:RAD Foundation Repository 03/30/2017 [id number] Ambulatory [place] [facility] ding:LAB Repository PAYERS PAYERS ENCOUNTER GUARANTOR PAYER SUBSCRIBER SOURCE 02/28/2018 BARRY Kamara Primary BARRY Kamara [facility] KAUFMANDOB: Insurance:HUMANA GOLD KAUFMANDOB: Foundation [id number] CHOICE MEDICAREPolicy [id number] Repository SONI ROGERS, Number: 3 [facility] [id number] [address]~DOROTHY Date:2018-02-28 95654Voo: 000 [email or web address]ENTERel: [id number] [phone] () Name:[address] () [address] [place] [id number]: 02/11/2018 BARRY Kamara Primary BARRY Gonzalesoster [id number] Insurance:HUMANA KAUFMANDOB: Community [address] MEDICARE PPOPolicy [id number] Number: Repository [address]Qxo: 330 [id number] [phone] () Date:[id number]4601WP: 02/11/2018 Secondary NOT GIVENUNK [place] Insurance:SELF PAY [facility] Number: Effective Repository Date:2018-02-08 02/11/2018 BARRY Kamara Primary BARRY Kamara [place] [id number] Insurance:HUMANA KAUFMANDOB: Community [address] MEDICARE PPOPolicy [id number] Number: Repository [address]Pzl: 330 [id number] [phone] () Date:3611-88-27[place] [id number]: 02/11/2018 Secondary NOT GIVENUNK [place] Insurance:SELF PAY [facility] Number: Effective Repository Date:2018-02-11 02/05/2018 BARRY Kamara Primary B[place]Y [place] [id number] Insurance:HUMANA KAUFMANDOB: Community [address] MEDICARE PPOPoly [id number] Number: Repository [address]Qmz: 330 [id number] [phone] (HP) Date:4303-12-55BO [address] [place] [address]KZ: 02/05/2018 Secondary NOT GIVENUNK [place] Insurance:SELF PAY [facility] Number: Effective Repository Date:2018-02-04 01/15/2018 BARRY Anh Primary BARRY [address] [id number] Insurance:HUMANA KAUFMANDOB: Community [address] MEDICARE [facility] [id number] Number: Repository [address]Lba: 330 [id number] [phone] (HP) Date:6330-04-58EY [address] [address]EJ: 01/15/2018 Secondary NOT GIVENUNK [place] Insurance:SELF PAY [facility] Number: Effective Repository Date:2018-01-15 12/01/2017 BARRY Kamara Primary BARRY Kamara [facility] Insurance:HUMANA KENZIEMANUNK [address] CHOICE PPO MCPolicy Repository [id number]: (330) Number: [phone] (HP) [id number] Date:6468-07-12WR[address] [address]VN: 09/28/2017 BARRY Kamara Primary BARRY [place] [id number] Insurance:HUMANA KAUFMANDOB: Community [address] MEDICARE [facility] [id number] Number: Repository [address]Qsp: 330 [id number] [phone] (HP) Date:4694-99-32VZ [address] [address]SB: 09/28/2017 Secondary NOT GIVENUNK [place] Insurance:SELF PAY [facility] Number: Effective Repository Date:2017-09-28 07/22/2017 BARRY Kamara Primary BARRY Anh [place] [id number] Insurance:HUMANA KAUFMANDOB: Community [address] MEDICARE [facility] [id number] Number: Repository [phone]: 330 [id number] [phone] (HP) Date:6093-20-13ZDTHOMAS [place] [address]WP: 07/22/2017 Secondary NOT GIVENUNK [place] Insurance:SELF PAY [facility] Number: Effective Repository Date:2017-07-20 07/22/2017 BARRY Kamara Primary BARRY Anh [place] [id number] Insurance:HUMANA KAUFMANDOB: Community [address] MEDICARE [facility] [id number] Number: Repository [address]Hpv: 330 [id number] [phone] (HP) Date:1475-24-65RLTHOMAS VILLE [address]WP: 07/22/2017 Secondary NOT GIVENUNK [place] Insurance:SELF PAY [facility] Number: Effective Repository Date:2017-07-22 07/20/2017 BARRY Kamara Primary BARRY [place] [id number] Insurance:HUMANA KAUFMANDOB: Community [address] MEDICARE [facility] [id number] Number: Repository [id number]: (330 [id number] [phone] (HP) Date:1626-53-84PI [address] [address]VW: 07/20/2017 Secondary NOT GIVENUNK [place] Insurance:SELF PAY [facility] Number: Effective Repository Date:2017-02-19 07/15/2017 Barry [place] [id number] Insurance:HUMANA KaufmanDOB: Community [address] MEDICARE [facility] [id number] Number: Repository [id number]: [phone] [id number] [phone] (HP) Date:0933-03-78VK [address] [place] [address]VE: 07/15/2017 Secondary NOT GIVENUNK [place] Insurance:SELF PAY [facility] Number: Effective Repository Date:2017-07-15 06/03/2017 BARRY Kamara Primary BARRY Kamara [facility] CenterUFM[facility]OB: Insurance:HUMANA GOLD KAUFMANDOB: [facility] CHOICE MEDICAREPoly [id number] Repository [address], Number: [facility] [place] [id number] [address]~[facility] Date:2017-06-03 478[address]Kyu: [phone]) [email or web address]@Health Benefits [email or web address] [email or web address] CENTERel: [id number] [phone] Name:[address] (HP)Tel: (000) (HP)Tel: ([phone]) [address] [place] [address] [phone] (WP) [phone] (WN) [address]IR: 03/30/2017 [facility] [id number] Insurance:HUMANA KaufmanDOB: [facility] [address] MEDICARE PPOPolicy [id number] Number: Repository [address]Ncv: 330 [id number] [phone] (HP) Date:5092-16-04MV [address] [place] [address]ON: 03/30/2017 Secondary NOT GIVENUNK [place] Insurance:SELF PAY [facility] Number: Effective Repository Date:2017-03-30
== END 2018-02-11 07:35 | disposition home or self-care (01) ==
LOC: EN 05:26 → AC 05:27
PROVIDERS: Family Provider Family Medicine; PCP Family Medicine; Referring Provider Surgery; Visit Provider Surgery
PROC: 0DJD8ZZ Inspection of Lower Intestinal Tract, Via Natural or Artificial Opening Endoscopic (ICD-10-PCS; CPT 45378; principal; 2018-02-11 06:25)
DX: K44.9 Diaphragmatic hernia without obstruction or gangrene (principal); K31.89 Other diseases of stomach and duodenum; K64.9 Unspecified hemorrhoids; K57.30 Diverticulosis of large intestine without perforation or abscess without bleeding; R19.5 Other fecal abnormalities; E78.00 Pure hypercholesterolemia, unspecified; N40.0 Benign prostatic hyperplasia without lower urinary tract symptoms; I25.119 Atherosclerotic heart disease of native coronary artery with unspecified angina pectoris; I65.23 Occlusion and stenosis of bilateral carotid arteries; I25.2 Old myocardial infarction; I73.9 Peripheral vascular disease, unspecified; I10 Essential (primary) hypertension; E78.5 Hyperlipidemia, unspecified; Z95.5 Presence of coronary angioplasty implant and graft; Z79.82 Long term (current) use of aspirin; Z79.899 Other long term (current) drug therapy
CPT/HCPCS: 43239; 45378; 88305; 88313; 88342; J7120

== ENCOUNTER → 2018-06-28 06:23 | Outpatient (CLI) | payer MEDICARE, SELFPAY ==
[2018-02-11 05:52] VITALS: BMI 21.6
--- NOTE | 2018-06-28 06:40 | MRI_ITS ---
STUDY: MRI BRAIN WITH AND WITHOUT CONTRAST (ATTENTION INTERNAL AUDITORY CANALS - I.A.C.'s) REASON FOR EXAM: Male, 78 years old. Left ear hearing loss with tinnitus TECHNIQUE: Standardized multiplanar fat and water weighted pulse sequences were obtained. 13 IV Dotarem was administered for the contrast portion of the examination. COMPARISON: None. FINDINGS: Normal bilateral temporal bones. Normal bilateral internal auditory canals. There is no demonstrated intracanalicular or cisternal vestibular schwannoma (acoustic neuroma). There is no enhancement of the bilateral VIIth or VIIIth cranial nerves. Normal bilateral cochlea, vestibules and semicircular canals. Normal size of the ventricles and extra-axial spaces for the patient's age. There are a limited number of small white matter hyperintensities, distributed throughout the deep white matter tracts of the cerebral hemispheres, consistent with mild chronic white matter ischemic changes. Normal bilateral basal ganglia. Normal thalami. Normal flow voids within the major intracranial circulation suggesting patency by spin echo criteria. Normal venous enhancement. There is no enhancing intra-axial or extra-axial abnormality. There is no extra-axial fluid accumulation. Normal sella turcica, pituitary gland, infundibular stalk, optic chiasm and hypothalamus. Normal tectal plate and pineal gland. Normal midbrain, richi and medulla. Normal cerebellum. Normal basal cisterns. No demonstrated orbital abnormality, within the constraints of a routine brain study. Normal visualized paranasal sinuses. Normal calvarium and skull base. Normal visualized soft tissue structures. Normal visualized upper cervical spine. MRI/Brain W/WO Contrast IMPRESSION: No MRI evidence of pathology involving the internal auditory canals, inner ears, or cerebellopontine angles. No evidence of acute intra-axial pathology. Mild microangiopathic white matter disease. Electronically Signed: Ba Angulo MD at 16:35 EDT Tel , Service support ,
[2018-06-28 06:55] LABS: EGFR FINGERSTICK > 60.0000 mL/min (>60)
== END ==
PROVIDERS: Family Provider Family Medicine; PCP Family Medicine; Referring Provider Otolaryngology; Visit Provider Otolaryngology
DX: H90.A22 Sensorineural hearing loss, unilateral, left ear, with restricted hearing on the contralateral side (principal)
CPT/HCPCS: 70553; A9575

== ENCOUNTER 2019-01-19 06:58 | Day surgery (SDC) | payer MEDICARE, SELFPAY ==
[2019-01-12 13:06] VITALS: BMI 22.9
--- NOTE | 2019-01-13 09:20 | RAD_ITS ---
STUDY: X-RAY CHEST REASON FOR EXAM: Male, 78 years old. Chest pain. TECHNIQUE: Frontal and lateral views of the chest. COMPARISON: 08/14/2015. FINDINGS: There is hyperinflation of the lungs consistent with chronic obstructive lung disease (COPD). No infiltrates. No effusions. There is no demonstrated pleural abnormality. Normal size heart. Normal mediastinum and skyla. Normal visualized pulmonary arteries. Normal visualized aortic arch and descending thoracic aorta. There are diffuse degenerative changes of the visualized thoracic spine. Normal visualized ribs, clavicles, and shoulders. There is no demonstrated abnormality of the visualized soft tissue structures of the upper abdomen. RAD/Chest PA and Lateral IMPRESSION: There are findings consistent with COPD. There is no evidence of acute chest disease. Electronically Signed: Enrike Jorge MD at 19:40 EST , Service support ,
[2019-01-13 10:40] LABS: Absolute Lymphocyte Count 1.37 X10^3/uL (0.83-4.51); Basophil# 0.05 X10^3/uL; Basophil% 0.8 % (0-1); Eosinophil# 0.27 X10^3/uL; Eosinophils% 4.3 % (0-5); Hematocrit 44.6 % (40-54); Lymphocyte # 1.37 X10^3/ul (4.0); Lymphocyte % 21.6 % (19-41); Mean Corp Hgb Conc 33.6 g/dL (32-36); Mean Corpuscular Hgb 33.1 pg (27.0-32.0); Mean Corpuscular Volume 98.5 fL (80-94); Mean Platelet Vol. 11.4 fl (6.2-12.0); Monocyte# 0.65 X10^3/uL; Monocyte% 10.2 % (0-10); NRBC Flagged by Analyzer 0 % (0-5); Neutrophil % 62.9 % (47-70); Platelet Count 213 K/mm3 (150-450); RBC Distribution Width CV 12.4 % (11.6-14.6); RBC Distribution Width SD 44.8 fl (35.1-43.9); Red Blood Count 4.53 M/mm3 (4.6-6.2); White Blood Count 6.4 K/mm3 (4.4-11.0)
[2019-01-13 11:09] LABS: AST(SGOT) 26 U/L (15-37); Alanine Aminotransfer ALT/SGPT 23 U/L (16-61); Albumin, Serum 3.9 g/dL (3.2-5.0); Alkaline Phosphatase 75 U/L (45-117); Anion Gap 4 (5-15); BUN 14 mg/dL (7-18); BUN/Creat Ratio 15.4 RATIO (10-20); Bilirubin, Direct 0.21 mg/dL (0.00-0.30); Calcium,Total 9.2 mg/dL (8.5-10.1); Chloride 108 mmol/L (98-107); Cholesterol 152 mg/dL (200); Creatinine, Serum 0.91 mg/dL (0.70-1.30); EST Glomerular Filtration Rate 86 mL/min (>60); Est Glom Filt Rate - Afr Amer 104 mL/min (>60); Globulin 3.2 g/dL (2.2-4.2); Glucose 108 mg/dL (74-106); High Density Lipoprotein 44 mg/dL; Potassium 4.5 mmol/L (3.5-5.1); Protein, Total 7.1 g/dL (6.4-8.2); Sodium Level 140 mmol/L (136-145); Triglycerides 83 mg/dL; Very Low Density Lipoprotein 17 mg/dL (5-40)
[2019-01-13 11:21] LABS: International Normalized Ratio 1.1; Prothrombin Time (Protime)PT. 14.4 SECONDS (11.7-14.9)
[2019-01-13 11:23] LABS: Partial Thromboplast Time 32.3 Seconds (24.1-36.2)
[2019-01-18 09:12] VITALS: BMI 22.9
[2019-01-19] VITALS (32 sets, daily range): BP systolic 85–163; BP diastolic 53–96; PULSE 46–70; RESP 12–21; TEMP 36.3–36.4; O2SAT 95–99; BMI 21.9; BMI 22.9
--- NOTE | 2019-01-19 07:36 | HP.PCM_ITS ---
Problem List (1) Angina pectoris Status: Acute (2) CAD in [place] artery Status: Chronic (3) Presence of stent in coronary artery Status: Chronic Comment: PTCA/Stent of distal RCA 01/23/10; PTCA/EMIR of the LAD and OM1 11/2011; PCI/EMIR to Mid RCA 08/16/15 (4) Hyperlipidemia Status: Chronic Qualifiers: (5) Hypertension Status: Chronic Qualifiers: History and Physical Date of Admission: 01/19/19 [facility] [address] [place] [address] OFFICE VISIT Date of Service: 01/12/19 MR#: [id number] Acct: [id number] Name: BARRY VERGARA Rep #: [id number] : 1940 Provider: Whitley Cisneros Age/Sex: 78/M Location: [facility] Status: Signed HPI HPI History of Present Illness Details: BARRY VERGARA, is a 78 M who presents to the office today for an urgent cardiovascular follow-up. He has a history of coronary artery disease with stenting to his RCA in 2009 and subsequent stenting to his LAD and OM in 2011 and stenting to his RCA in 2016. 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 He does have a history of hypertension, hyperlipidemia and ischemic cardiomyopathy. He states that he has started to have angina symptoms over the last month. He [facility] yesterday, he was walking on a treadmill and noted that he had chest discomfort. It was a 2/10. He states that this feels similar to his other anginal symptoms. He stopped and it went away. He notes that he has had an increase in these symptoms over the last month. This is both at rest and with exertion. He has used NTG once. The discomfort is a heaviness. He does not have any worsening SOB. He notes that his BP has been higher over the last few weeks. He does not have any palpitations. He does occasionally have claudication. He does occasionally have lightheadedness. EKG today demonstrates sinus bradycardia. Intake Vital Signs 01/12/19 Height 5 ft 10 in 01/12/19 Weight: 160 lb 01/12/19 Body Mass Index (BMI) 22.9 01/12/19 Blood Pressure 152/80 H 01/12/19 Blood Pressure Location Lt brachial 01/12/19 Blood Pressure Position Sitting 01/12/19 Respiratory Rate 16 01/12/19 Pulse Rate 61 01/12/19 Pulse Source Monitor 01/12/19 Pulse Ox 99 Intake Visit Reasons: angina Cardboard Inserter Required: No Is patient in pain?: No Allergies No Known Allergies Allergy (Verified 01/12/19 13:06) Medications aspirin 81 mg tablet,delayed release 81 mg PO QDAY 07/15/17 [History Confirmed 01/12/19] dutasteride 0.5 mg capsule 0.5 mg PO .3WEEK cap 07/15/17 [History Confirmed 01/12/19] nitroglycerin 0.4 mg sublingual tablet 0.4 mg SUBLINGUAL Q5-15M PRN 07/15/17 [History Confirmed 01/12/19] clopidogrel 75 mg tablet 75 mg PO QDAY #90 tab 07/30/18 [Rx Confirmed 01/12/19] simvastatin 80 mg tablet 80 mg PO QPM #90 tab 07/30/18 [Rx Confirmed 01/12/19] lisinopril 2.5 mg tablet 2.5 mg PO QDAY #90 tab 10/05/18 [Rx Confirmed 01/12/19] metoprolol tartrate 25 mg tablet 12.5 mg PO BID #90 tab 10/05/18 [Rx Confirmed 01/12/19] isosorbide mononitrate ER 30 mg tablet,extended release 24 hr 30 mg PO DAILY #30 tab 01/12/19 [Rx Confirmed 01/12/19] tamsulosin 0.4 mg capsule 0.4 mg PO DAILY 01/12/19 [History Confirmed 01/12/19] [facility] Medical History (Updated 02/05/18 @ 16:16 by Jarrod Gonzalez MD) Positive colorectal cancer screening using Cologuard test (Acute) Long-term use of high-risk medication (Chronic) Hyperlipidemia (Chronic) Hypertension (Chronic) History of myocardial infarction (Acute) Angina pectoris (Acute) Claudication, intermittent (Acute) Occlusion and stenosis of bilateral carotid arteries (Chronic) Atherosclerotic heart disease of [place] coronary artery without angina pectoris (Chronic) Surgical History (Updated 07/15/17 @ 11:54 by Whitley Dominguez) Presence of stent in coronary artery (Chronic) Postsurgical percutaneous transluminal coronary angioplasty (PTCA) status (Chronic) History of hernia repair (Resolved) Family History (Updated 07/15/17 @ 11:53 by Whitley Dominguez) Father Heart disease Mother CVA (cerebral vascular accident) Hypertension Brother CAD (coronary artery disease) Myocardial infarction, Onset Age: 25 Hx of CABG Social History (Updated 01/12/19 @ 17:03 by HARPREET Espino) Smoking Status: Never smoker alcohol intake: never substance use type: does not use Cardiology Exam Const Appearance: cooperative, no acute distress and well developed Orientation: alert, awake and oriented x3 Head Head: normocephalic and atraumatic Mouth: moist mucous membranes Eyes General: appearance normal, both eyes and all related structures Conjunctivae: conjunctivae normal Pupils: PERRL EOM: EOM intact bilaterally Neck Neck: normal visual inspection, no lymphadenopathy and no JVD Carotids: Negative bruit Neck Mass: Negative Neck mass Chest Chest inspection: normal inspection of the chest and symmetric chest movement Auscultation: Bilateral: Clear to Auscultation Cardio Palpation: normal PMI Rate: regular rate Rhythm: regular rhythm Heart sounds: S1 normal and S2 normal; negative rub, gallop or murmur GI GI: normal to inspection, soft, no hepatosplenomegaly and bowel sounds present; negative tender Neuro General: alert, awake, oriented x3, CN's II-XI intact bilaterally and moves all extremities Extremities Pulses: Normal: Right Posterior Tibial Pulse, Left Posterior Tibial Pulse, Right Radial Pulse, Left Radial Pulse Lower Extremity Edema: None: Bilateral Psych Psychological: normal affect Assessment & Plan 1. CAD in [place] artery I25.10 Plan Patient does have symptoms concerning for angina. As his symptoms are similar to what he had had previous to his stenting would like to proceed with a diagnostic heart catheterization. This was discussed with Dr. Sigala. He agrees with proceeding with this. Patient is scheduled for a diagnostic heart catheterization on January 20. With his symptoms of angina will also start him on isosorbide. Patient was advised that if his symptoms worsen that he should go to the emergency room Patient Instructions Do not have anything to eat or drink after midnight the night before your procedure. In the morning, take all of you morning medications. you will need a tractor trailer truck driver that day, if you have a stent you will spend the night. Orders Orders: Left Heart Cath/COR/LV Percut Today Basic Metabolic Profile (BMP) Today Lipid Profile Today Liver Profile Today Partial Thromboplast Time Today Prothrombin Time w/INR Today CBC W/Diff, Automated Today Chest PA and Lateral Today 2. Essential hypertension I10 Plan Will start patient on isosorbide. We will continue to monitor. We will decide at next office visit if he should remain on his isosorbide. Orders Orders: Left Heart Cath/COR/LV Percut Today Basic Metabolic Profile (BMP) Today Lipid Profile Today Liver Profile Today Partial Thromboplast Time Today Prothrombin Time w/INR Today CBC W/Diff, Automated Today Chest PA and Lateral Today 3. Pure hypercholesterolemia E78.00 Plan We will continue to trend. Patient will continue to need with a statin. Plan Detail Other Orders Orders: 12 Lead EKG performed by [facility] Today I20.9 Left Heart Cath/COR/LV Percut Today E78.5, I20.9, Z95.5 Basic Metabolic Profile (BMP) Today E78.5, I20.9 Lipid Profile Today E78.5, I20.9, Z79.899 Liver Profile Today E78.5, I20.9 Partial Thromboplast Time Today E78.5, I20.9, I65.23 Prothrombin Time w/INR Today E78.5, I20.9 CBC W/Diff, Automated Today E78.5, I20.9, R19.5 Chest PA and Lateral Today E78.5, I20.9 Other Medications New: isosorbide mononitrate ER 30 mg PO DAILY 30 tabs 6RF Additional Comments Thank you for allowing us to participate in patient's plan of care, if you have any questions please do not hesitate to call. This note was generated using a voice recognition system and there may be incorrect words, spelling or punctuation errors that were not noted when reviewing the office note prior to saving. Follow Up 01/12/19 (keep as is) 01/12/19 (please see if we can get heart cath for next ) Coding Level of Care Code Off vis,est,level 4 Diagnoses CAD in [place] artery I25.10 Essential hypertension I10 ??Hypertension type: essential hypertension Pure hypercholesterolemia E78.00 ??Hyperlipidemia type: pure hypercholesterolemia Coding Level of Care Code Off vis,est,level 4 Diagnoses CAD in [place] artery I25.10 Essential hypertension I10 ??Hypertension type: essential hypertension Pure hypercholesterolemia E78.00 ??Hyperlipidemia type: pure hypercholesterolemia Supplemental Info Supplemental Information Labs LDL Cholesterol 86 mg/dL (0-130) 09/28/17 HDL Cholesterol 51 mg/dL (40-) 09/28/17 Triglycerides 77 mg/dL (-199) 09/28/17 VLDL Cholesterol 15 mg/dL (5-40) 09/28/17 Diagnostics Electrocardiogram 01/12/19 01/12/19 1703 <Electronically signed by Whitley Fabian> Date _ Whitley MULLINS [facility] Signature: Date (if applicable) CC: Froilan Cain MD ~ I have re-examined the patient. There are no clinical changes since date of exam.
--- NOTE | 2019-01-19 09:10 | PCM.DC.CCA ---
Discharge Diet: Low fat/ Low Cholesterol Discharge Activity: Return to Normal Activity May shower in (days): 1 - No tub baths for 5 days May resume sexual activity in: 1-2 weeks Lifting Restrictions: Do not lift anything greater than 10 pounds for 3 days Call your doctor if your incision/area has: Continuous Slow Oozing, Sudden Increased Bleeding, Increased Pain/ Swelling, Increased Redness, Foul Smelling Discharge, Swelling at the incision site Call your doctor if you observe: Fever of 101 or Higher, Shortness of breath, Chest pain Remove Dressing in (days):: 1 Cleanse incision/area with: Soap & Water Additional Instructions: You will continue with Aspirin therapy. You will continue with Plavix therapy for at least one year. If anyone asks you to stop your Plavix, please call the [facility] at [phone]. You are scheduled for an office appointment with Dr. Sigala on 02/14/2019 at 11:15. Please keep this appointment. Cardiac rehab may call you before your office appointment to set up an interview. We recommend you participate in cardiac rehab. If you have any questions or concerns, please call the [facility] at [phone]. Allergies/Adverse Reactions: Allergies No Known Allergies Allergy (Verified 01/12/19 13:06) Medications to take at Discharge aspirin 81 mg tablet,delayed release 81 mg PO QDAY 07/15/17 dutasteride 0.5 mg capsule 0.5 mg PO .3WEEK cap 07/15/17 nitroglycerin 0.4 mg sublingual tablet 0.4 mg SUBLINGUAL Q5-15M PRN 07/15/17 clopidogrel 75 mg tablet 75 mg PO QDAY #90 tab 07/30/18 simvastatin 80 mg tablet 80 mg PO QPM #90 tab 07/30/18 metoprolol tartrate 25 mg tablet 12.5 mg PO BID #90 tab 10/05/18 tamsulosin 0.4 mg capsule 0.4 mg PO DAILY 01/12/19 Lisinopril [Zestril] 5 mg PO DAILY #90 tab 01/20/19 The following prescriptions were given: Lisinopril [Zestril] 5 mg PO DAILY #90 tab Prescription Printed Orders to be completed after discharge: Phase II, Outpatient Cardiac Rehab Location: None Selected Primary Care Physician: Froilan Cain MD [Primary Care Provider] - Test Results: Test results from this visit will be discussed in further detail at your follow-up appointment, if applicable. Please Follow Up With: Dr. Sigala When: 02/14/2019 at 11:15 Proposed Discharge Date: 01/20/19 Cardiac Rehabilitation Info Cardiac Rehabilitation Program Information: Cardiac Rehabilitation is important for patients like you who are recovering from a heart problem. Cardiac rehabilitation programs are recognized as integral to the continued care of the patient with coronary heart disease. The cardiac rehabilitation program is designed to optimize a patient's physical, psychological, and social functioning. Health customer care manager work in cardiac rehabilitation programs and assist you with getting the treatments you need to get stronger and healthier - like exercise, healthy eating habits, and medications. Cardiac rehabilitation has been show to help people with heart problems live longer and have better life enjoyment than people who do not go to cardiac rehabilitation. Please contact the Cardiac Rehabilitation Program at [facility] at in two weeks if you have not heard from them.
--- NOTE | 2019-01-19 09:37 | CL.D_ITS ---
Patient Name: BARRY VERGARA Study Date: 01/19/2019 Performing: Froilan Sigala MD Ht: 70.07 inches 178 cm : 1940 Wt: 160.94 lbs 73 kg Age: 78 Gender: male BSA: 1.9 PROCEDURE(S) PERFORMED EG82-JCJ/COR/LV CLINICAL PROFILE AND INDICATIONS Indications: Worsening Angina, ACS > 24 hrs, New Onset Angina <= 2 months, Stable Known CAD Heart Failure: None Stress/Imaging Stress/Image Study Performed: No Stress/Image Study Performed: No Angina Classification Anginal Classification w/in 2 Weeks: CCS III CAD Presentations: Unstable angina. Unstable angina. Other: Dyspnea on exertion, previous similar anginal symptoms with known mid LAD disease. Comorbidities/Risk Factors: Hypertension Dyslipidemia Prior PCI CONCLUSIONS Elevated Left Ventricular End Diastolic Pressure Global LV systolic dysfunction- Mild LVEF: by LV gram 60 % Inupiat Multivessel CAD RECOMMENDATIONS Risk factor modification Medical therapy Staged for FFR DESCRIPTION OF PROCEDURE The patient arrived to the procedure lab. The risks and benefits of the procedure as well as a full d escription of our services here and current unavailability of surgical backup were fully explained to the patient and/or their significant other prior to the catheterization. The Timeout was completed, verifying the correct patient and procedure. The patient's procedural site was prepped and draped in the usual fashion. Local anesthetic was given subcutaneously to right groin region with Lidocaine 2%. Using a modified Seldinger technique, arterial access was obtained via the right femoral artery, a 4 Fr sheath was inserted Left Coronary Artery selective angiography was performed in multiple views us ing a 4 Fr. JL5 catheter. Right Coronary Artery selective angiography was then performed in multiple views using a 4 Fr. 3DRC catheter. Left Ventriculography was performed in LOVELACE projection using a 4 Fr . Pigtail catheter. LV to AO pullback pressures were then recorded.The arterial sheath was sutured in place and capped CORONARY ANGIOGRAPHY DOMINANCE: Right Dominant LEFT HEART ASSESSMENT Left Ventricular Ejection Fraction: by LV Gram 60 % Inferior Basal Hypokinesis - Mild Elevated Left Ventricular End Diastolic Pressure LVEDP: 18 mmHg LEFT MAIN: Mild calcification, Mild luminal irregularities LEFT ANTERIOR DESCENDING ARTERY: PROX LAD: eccentric: hazy: 50 - 75 % Stenosis MID LAD: Previously placed stent is patent DIAGONAL 1: Ostial - Mild luminal irregularities CIRCUMFLEX ARTERY: PROX CIRC: Mild luminal irregularities OM 1: Proximal - Previously placed stent is patent RAMUS: Mild luminal irregularities RIGHT CORONARY ARTERY: Mild luminal irregularities PROX RCA: Previously placed stent is patent DISTAL RCA: Previously placed stent is patent AORTIC ROOT: Angiographically normal COMPLICATIONS No Complications PROCEDURE MEDICATIONS Versed 1 mg IV Oxygen: 2 L/min via nasal cannula Adenosine drip for FFR 43.2 ml IV @ 01/19/2019 09:22:06 Heparin 6000 unit(s) IV 01/19/2019 08:58:08 Nitro 200 mcg IC 01/19/2019 08:59:10 Nitro 200 mcg IC 01/19/2019 08:59:10 Nitro 200 mcg IC 01/19/2019 09:10:23 IV Bolus: .9 NaCl 200 ml total 01/19/2019 08:58:16 SUMMARY OF HEMODYNAMIC DATA Time AIR REST ECG 07:23:51 AO 149/66 (98) SA 08:35:45 LV 152/-12, 18 08:42:33 LV 158/-14, 18 08:42:39 LV 147/-12, 18 08:43:23 LVp 153/-11, 19 08:43:28 AOp 155/60 (94) 08:43:33 Signed By Froilan Sigala MD On 01/19/2019 09:36:36 Froilan Sigala MD
--- NOTE | 2019-01-19 09:43 | CL.I_ITS ---
Patient Name: BARRY VERGARA Study Date: 01/19/2019 Performing: Taurus Casanova MD Ht: 70.08 inches 178 cm : 1940 Wt: 160.94 lbs 73 kg Age: 78 Gender: male BSA: 1.9 Amended PROCEDURE(S) PERFORMED [id number] W OR WO PTCA, SINGLE CORONARY ARTERY [id number], EACH ADD'L CORONARY ART, SAME MAJOR [id number], CORONARY OR GRAFT, INITIAL VESSEL CLINICAL PROFILE AND CO-MORBIDITIES Indications: Worsening Angina, ACS > 24 hrs, New Onset Angina <= 2 months, Stable Known CAD Heart Failure: None Stress/Imaging Stress/Image Study Performed: No Stress/Image Study Performed: No Angina Classification Anginal Classification w/in 2 Weeks: CCS III CAD Presentations: Unstable angina. Unstable angina. Other: Dyspnea on exertion, previous similar anginal symptoms with known mid LAD disease. Comorbidities/Risk Factors: Hypertension Dyslipidemia Prior PCI CONCLUSIONS Successful PTCA/EMIR proximal LAD with FFR of 0.79, followed with a 2.5 x 32 Promus Synergy stent, 75% -->0%, no dissection. FFR post stent =0.94. RECOMMENDATIONS Highly recommend quitting all tobacco products Follow up with primary vapor coater Risk factor modification ASA Indefinitley Plavix for at least 12 months Routine post interventional care Refer for Outpatient Cardiac Rehab Manual sheath removal per protocol Follow up with Dr. Sigala Manual sheath removal as pt is too thin for Mynx Control. DESCRIPTION OF PROCEDURE The patient arrived to the procedure lab. The risks and benefits of the procedure as well as a full d escription of our services here and current unavailability of surgical backup were fully explained to the patient and/or their significant other prior to the catheterization. The Timeout was completed, verifying the correct patient and procedure. The patient's procedural site was prepped and draped in the usual fashion. Local anesthetic was given subcutaneously to right groin region with Lidocaine 2% Using a modified Seldinger technique,arterial access was obtained via the right femoral artery, a 4Fr sheath was inserted Left Coronary Artery selective angiography was performed in multiple views using a 4 Fr. JL5 catheter. Right Coronary Artery selective angiography was then performed in multiple vie ws using a 4 Fr. 3DRC catheter. Left Ventriculography was performed in LOVELACE projection using a 4 Fr. P igtail catheter. LV to AO pullback pressures were then recorded.The images were reviewed and options discussed. A decision was then made to proceed with an Intervention, IVUS or other adjunc t procedure. Arterial sheath was exchanged for a 6 Fr Sheath. EBU 3.5 Guide catheter was inserted and engaged into the LCA. The FFR/iFR wire was inserted. FFR Ratio Baseline: 0.92 Adenosine was then given per pr otocol. Pressures and FFR/iFR were then recorded. FFR Ratio post Adenosine: 0.79 BMW Guide wire was a dvanced to the 1st Diagonal. Emerge 2.00x12 Balloon catheter was inserted. PTCA balloon inflated at 6 atms for 10 secs. Emerge 2.00x12 Balloon catheter was repositioned to additional lesion in the LAD, proximal. PTCA balloon inflated at 6 atms for 7 secs. PTCA balloon inflated at 8 atms for 9 secs. Ang iogram performed post balloon dilatation. Synergy 2.50x32 Drug Eluting stent was inserted. Angiogram performed post stent deployment. FFR Ratio post intervention: 0.91 The FFR/iFR wire was then removed. The arterial sheath was sutured in place and capped INTERVENTION INFORMATION LESION SITE: LAD (Proximal) Lesion Complexity: High/C, lesion at bifurcation: Yes, thrombus present: No, lesion length: 32 mm, cu lprit lesion: Yes Pre Stenosis: 75 % Pre intervention AVIS flow: 3 PROCEDURE: FFR, Drug Eluting Stent with pre dilatation. Post Stenosis: 0 % Post intervention AVIS flow: 3 Lesion Devices: Gil Sci mygall MR 2.00x12 BALLOON Gil Sci Atomic Reach MR EMIR 2.50x32 LESION SITE: 1st Diagonal (Ostial) Lesion Complexity: Non-High/Non-C, lesion at bifurcation: Yes, thrombus present: No, lesion length: 8 mm, culprit lesion: No Pre Stenosis: 75 % Pre intervention AVIS flow: 3 PROCEDURE: Balloon Angioplasty Post Stenosis: 0 % Post intervention AVIS flow: 3 Lesion Devices: Gil Sci EMERGE MR 2.00x12 BALLOON COMPLICATIONS No Complications PROCEDURE MEDICATIONS Versed 1 mg IV Oxygen: 2 L/min via nasal cannula Adenosine drip for FFR 43.2 ml IV @ 01/19/2019 09:22:06 Heparin 6000 unit(s) IV 01/19/2019 08:58:08 Nitro 200 mcg IC 01/19/2019 08:59:10 Nitro 200 mcg IC 01/19/2019 08:59:10 Nitro 200 mcg IC 01/19/2019 09:10:23 IV Bolus: .9 NaCl 200 ml total 01/19/2019 08:58:16 SUMMARY OF HEMODYNAMIC DATA Time AIR REST ECG 07:23:51 AO 149/66 (98) SA 08:35:45 LV 152/-12, 18 08:42:33 LV 158/-14, 18 08:42:39 LV 147/-12, 18 08:43:23 LVp 153/-11, 19 08:43:28 AOp 155/60 (94) 08:43:33 Signed By Taurus Casanova MD On 02/02/2019 08:21:24 Signed By Taurus Casanova MD On 01/19/2019 09:43:18 Taurus Casanova MD
[2019-01-19 09:55] LABS: ACT Activated Clotting Time 180 sec (74-137)
--- NOTE | 2019-01-19 09:56 | EKG12_ITS ---
Test Reason : POSTPCI Blood Pressure : / mmHG Vent. Rate : 061 BPM Atrial Rate : 061 BPM P-R Int : 132 ms QRS Dur : 092 ms QT Int : 418 ms P-R-T Axes : 023 001 007 degrees QTc Int : 420 ms Normal sinus rhythm Normal ECG Confirmed by BRIONNA MENDOZA, [facility] ([id number]), mapping editor ZAMZAM RODARTE ([id number] on 01/31/2019 1:03:27 PM Referred By: Froilan Sigala Confirmed By:SINAI STATON MD
[2019-01-19] MEDS: 0.9% Normal Saline 1,000 ML 150 ML IV (10:00)
--- NOTE | 2019-01-19 10:00 | EKG12_ITS ---
Test Reason : AM EKG Blood Pressure : / mmHG Vent. Rate : 055 BPM Atrial Rate : 055 BPM P-R Int : 158 ms QRS Dur : 102 ms QT Int : 426 ms P-R-T Axes : 056 015 014 degrees QTc Int : 407 ms Sinus bradycardia Otherwise normal ECG When compared with ECG of 19-JAN-2019 10:04, MANUAL COMPARISON REQUIRED, DATA IS UNCONFIRMED Confirmed by BRIONNA MENDOZA, [facility] ([id number]), online content editor GENE KAPADIA ([id number]) on 01/24/2019 10:13:48 AM Referred By: Froilan Sigala Confirmed By:SINAI STATON MD
[2019-01-19] MEDS: 0.9% Saline Lock 10 ML Syringe IV (11:36)
[2019-01-19 11:50] LABS: ACT Activated Clotting Time 164 sec (74-137)
--- NOTE | 2019-01-19 13:27 | CRPHASE1 ---
Patient Communication PHII Cardiac Rehab Discussed with Patient:: Yes Guide to Cardiac Rehab Given to Patient:: Yes Cardiac Rehab Facility Choice List Given to Patient:: Yes - Might want to go to [place]. Choice Program [facility] CR PHII:: Communication Given to CR, Refer to [facility] Senior Linux Systems Administrator:: Taurus Casanova Refer Phase II Cardiac Rehab:: Yes Sessions:: 36 sessions - 3 days/wk, 12 weeks Risk Factors/Lifestyle Hx Hypertension: Yes Hx Dyslipidemia: Yes Height: 1.78 m Weight:: 72.575 kg BMI: 22.9 Family History: Family History (Last Reviewed 02/05/18 @ 14:53 by Mickie Frank) Father Heart disease Mother CVA (cerebral vascular accident) Hypertension Brother CAD (coronary artery disease) Myocardial infarction, Onset Age: 25 Hx of CABG Laboratory Values: Cardiac Rehab Phase I Labs Triglycerides 83 mg/dL (-199) 01/13/19 09:05 Cholesterol 152 mg/dL (200) 01/13/19 09:05 LDL Cholesterol 91 mg/dL (0-130) 01/13/19 09:05 HDL Cholesterol 44 mg/dL (40-) 01/13/19 09:05 Phase I Education Given On:: [place], Nutrition, Antiplatelet medication, CHF, Smoking cessation, Diabetes - Type I, Diabetes - Type II Knowledge of Condition:: Yes Hospital Course Cardiac Cath Date:: 01/19/19 Medical/Surgical History Hypertension:: Yes Dyslipidemia:: Yes Discharge/Home/Social Eval Marital Status: Cardiac Rehabilitation Info Cardiac Rehabilitation Program Information: Cardiac Rehabilitation is important for patients like you who are recovering from a heart problem. Cardiac rehabilitation programs are recognized as integral to the continued care of the patient with coronary heart disease. The cardiac rehabilitation program is designed to optimize a patient's physical, psychological, and social functioning. Health long term care social worker work in cardiac rehabilitation programs and assist you with getting the treatments you need to get stronger and healthier - like exercise, healthy eating habits, and medications. Cardiac rehabilitation has been show to help people with heart problems live longer and have better life enjoyment than people who do not go to cardiac rehabilitation. Please contact the Cardiac Rehabilitation Program at [facility] at in two weeks if you have not heard from them.
[2019-01-19] MEDS: Isosorbide Mononitrate 30 MG Tablet PO (13:29)
[2019-01-19] MEDS: Lisinopril 5 MG Tablet PO (13:31)
--- NOTE | 2019-01-19 13:31 | CRPH1.INSTRU ---
General Education CAD and cardiac anatomy and function:: Patient communicates acknowledgment Explanation of diagnoses and procedures:: Patient communicates acknowledgment Sign/Symptoms of SD:: Patient communicates acknowledgment Antiplatelet therapy: Patient communicates acknowledgment Proper use of NTG-SL: Not instructed Emergency procedures and activation of EMS: Patient communicates acknowledgment Compliance of all prescribed medications: Patient communicates acknowledgment Smoking Nicotine/Smoking Response Code:: Patient communicates acknowledgment Dyslipidemia Recommendations Include:: Lipid profile provided, Lipid profile not available, Reviewed NCEP/ATP guidelines, Therapeutic Lifestyle Change dietary guidelines Dyslipidemia Response Code:: Patient communicates acknowledgment Overweight/Obesity Patient Overweight/Obesity Risk Factors Are:: BMI Normal [18-25 & < 65 years old] Overweight/Obesity:: Patient communicates acknowledgment Hypertension Recommendations Include:: Maintain BP <130/85, BP <130/80 if diabetic, DASH dietary guidelines, Decrease/maintain normal body weight, Moderation of ETOH Hypertension:: Patient communicates acknowledgment Heart Disease Heart Disease Response Code:: Patient communicates acknowledgment Diabetes Diabetes:: Patient communicates acknowledgment Metabolic Syndrome Metabolic Syndrome Response Code:: Patient communicates acknowledgment Sedentary Sedentary Response Code:: Patient communicates acknowledgment Stress Stress Response Code:: Patient communicates acknowledgment
[2019-01-19] MEDS: Metoprolol Tartrate 25 MG Tablet 12.5 MG PO (21:51)
[2019-01-19] MEDS: Atorvastatin Calcium 40 MG Tablet PO (21:52)
[2019-01-20] VITALS (12 sets, daily range): BP systolic 85–124; BP diastolic 50–68; PULSE 49–60; RESP 15–18; TEMP 36.4–36.7; O2SAT 93–96
[2019-01-20 04:11] LABS: Hematocrit 38.1 % (40-54); Hemoglobin 13.1 g/dL (13.0-16.5); Mean Corp Hgb Conc 34.4 g/dL (32-36); Mean Corpuscular Hgb 33.6 pg (27.0-32.0); Mean Corpuscular Volume 97.7 fL (80-94); Mean Platelet Vol. 11.4 fl (6.2-12.0); Platelet Count 169 K/mm3 (150-450); RBC Distribution Width CV 12.6 % (11.6-14.6); RBC Distribution Width SD 44.9 fl (35.1-43.9); White Blood Count 7.5 K/mm3 (4.4-11.0)
[2019-01-20 04:29] LABS: ALB/GLOB Ratio 1.2 RATIO (0.9-2.4); AST(SGOT) 19 U/L (15-37); Alanine Aminotransfer ALT/SGPT 20 U/L (16-61); Albumin, Serum 3.2 g/dL (3.2-5.0); Alkaline Phosphatase 63 U/L (45-117); Anion Gap 7 (5-15); BUN 19 mg/dL (7-18); BUN/Creat Ratio 23.2 RATIO (10-20); Calcium,Total 8.2 mg/dL (8.5-10.1); Chloride 109 mmol/L (98-107); Creatinine, Serum 0.82 mg/dL (0.70-1.30); EST Glomerular Filtration Rate 97 mL/min (>60); Est Glom Filt Rate - Afr Amer 118 mL/min (>60); Estimated Creatinine Clearance 78.67 ml/min; Globulin 2.6 g/dL (2.2-4.2); Glucose 109 mg/dL (74-106); Potassium 4.4 mmol/L (3.5-5.1); Protein, Total 5.8 g/dL (6.4-8.2); Sodium Level 140 mmol/L (136-145)
[2019-01-20] MEDS: Aspirin E.C. 81 MG Tablet PO (08:42)
[2019-01-20] MEDS: Clopidogrel Bisulfate 75 MG Tablet PO (08:43)
[2019-01-20] MEDS: Metoprolol Tartrate 25 MG Tablet 12.5 MG PO (08:43)
--- NOTE | 2019-01-20 08:43 | PCM.DC.SUM ---
Discharge Date and Diagnosis Date of Admission: 01/19/19 Date of Discharge: 01/20/19 - Primary Discharge Diagnosis Angina pectoris; CAD; status post LAD PCI - Secondary Discharge Diagnosis Chronic Problems (Last Reviewed 02/05/18 @ 14:53 by Mickie Frank) CAD in [place] artery (Chronic) Presence of stent in coronary artery (Chronic ~01/19/19) PTCA/Stent of distal RCA 01/23/10; PTCA/EMIR of the LAD and OM1 11/2011; PCI/EMIR to Mid RCA 08/16/15; PTCA/EMIR to LAD 01/19/19 Long-term use of high-risk medication (Chronic) Hyperlipidemia (Chronic) Hypertension (Chronic) Occlusion and stenosis of bilateral carotid arteries (Chronic) Atherosclerotic heart disease of [place] coronary artery without angina pectoris (Chronic) PTCA/Stent of distal RCA 01/23/10; PTCA/EMIR of the LAD and OM1 11/2011; PCI/EMIR to Mid RCA 08/16/15 Hospital Course and Treatment Procedures: Cardiac catheterization, - - Cardiac intervention Summary of Care Provided: The patient is a 78 year old male with a past medical history of CAD status post multivessel PCI who presented for concerns in the outpatient setting compatible with angina pectoris reminiscent of his previous CAD process. Status post review of the case it was recommended to proceed with further evaluation with diagnostic cardiac catheterization. The diagnostic cardiac catheterization was performed and raise concerns about the LAD proximal area. The patient's previous PCI sites appear to be patent. Thus the LAD proximal area underwent further evaluation with FFR which was considered abnormal. The patient subsequently underwent LAD PCI under the direction of Dr. Casanova. The patient resided in the ICU overnight where he remained symptomatically stable. His cardiac rhythm has remained sinus rhythm. His ECG has remained sinus rhythm with no acute ECG changes. On this day it was felt the patient considered stable for release home for continued outpatient cardiovascular follow-up. [] Subjective: This is a 78-year-old thin white male who appears to be resting comfortably at the moment in no acute distress. - Physical Exam Vitals/I&O's: Vital Signs Temp Pulse Resp BP Pulse Ox 97.5 F L 53 L 18 122/64 H 95 01/20/19 04:00 01/20/19 08:00 01/20/19 08:00 01/20/19 08:00 01/20/19 08:00 Oxygen Delivery Method Room Air Weight: 153 lb 10.595 oz Body Mass Index (BMI) 21.9 Intake and Output for Last 24 Hours 01/18/19 01/19/19 01/20/19 23:59 23:59 23:59 Intake Total 1300 / 1540 330 / 330 Output Total 1550 / 2100 850 / 850 Balance -250 / -560 -520 / -520 General: Alert, Oriented x3, Cooperative, No apparent distress HEENT: Atraumatic, PERRLA, EOMI, Normocephalic Oral: Moist Mucosa Neck: No JVD Lungs: Clear to auscultation Cardiovascular: Regular rate, Normal S1, Normal S2 Abdomen: Bowel Sounds Present, Soft, Non Tender Extremities: No edema Skin: No rashes Neurological: Neuro grossly intact Psych/Mental Status: Normal Affect Comment: Right femoral artery: Pulse 2+/4+: No bruits: No hematoma Laboratory Results 01/19/19 09:26: Activated Clotting Time 180 H 01/19/19 11:36: Activated Clotting Time 164 H 01/20/19 04:00: WBC 7.5, RBC 3.90 L, Hgb 13.1, Hct 38.1 L, MCV 97.7 H, MCH 33.6 H, MCHC 34.4, RDW Std Deviation 44.9 H, RDW Coeff of Gelacio 12.6, Plt Count 169, MPV 11.4 01/20/19 04:00: Sodium 140, Potassium 4.4, Chloride 109 H, Carbon Dioxide 24.0, Anion Gap 7, BUN 19 H, Creatinine 0.82, Estim Creat Clear Calc 78.67, Est GFR (MDRD) Af Amer 118, Est GFR (MDRD) Non-Af 97, BUN/Creatinine Ratio 23.2 H, Glucose 109 H, Calcium 8.2 L, Total Bilirubin 0.60, AST 19, ALT 20, Alkaline Phosphatase 63, Total Protein 5.8 L, Albumin 3.2, Globulin 2.6, Albumin/Globulin Ratio 1.2 Current Medications Acetaminophen (Tylenol) 650 mg PO Q6H PRN PRN PRN Reason: Pain Score 1-3/10 Aspirin (Ecotrin) 81 mg PO DAILY@0800 [facility] Atorvastatin Calcium (Lipitor) 40 mg PO QHS [facility] Last Admin: 01/19/19 21:52 Dose: 40 mg Documented by: Atropine Sulfate () 0.5 mg IV UD PRN PRN Reason: HR <50 bpm Clopidogrel Bisulfate (Plavix) 75 mg PO DAILY [facility] Finasteride (Proscar) 5 mg PO MoWeFr@1000 [facility] Heparin Sodium (Beef Lung) (Heparin 500 Unit/5 Ml (100/Ml)) 500 unit IV UD PRN PRN Reason: HEPARIN FLUSH Labetalol HCl (Trandate) 5 mg IV X1 PRN PRN Reason: SBP > 160 when pulling sheath Lisinopril (Zestril) 5 mg PO DAILY [facility] Last Admin: 01/19/19 13:31 Dose: 5 mg Documented by: Lorazepam (Ativan) 1 mg PO Q6H PRN PRN PRN Reason: BACK SPASMS/ANXIETY Metoclopramide HCl (Reglan) 5 mg IV Q6H PRN PRN PRN Reason: NAUSEA/VOMITING Metoprolol Tartrate (Lopressor (Beta Darrin)) 12.5 mg PO BID [facility] Last Admin: 01/19/19 21:51 Dose: 12.5 mg Documented by: Morphine Sulfate () 2 mg IV Q4H PRN PRN PRN Reason: Mild back pain (-12/09) Nitroglycerin (Nitrostat) 0.4 mg SUBLINGUAL Q5M PRN PRN Reason: CHEST PAIN Sodium Chloride () 500 ml IV BOLUS PRN PRN Reason: VASO-VAGAL PROTOCOL Sodium Chloride () 10 - 40 ml IV UD PRN PRN Reason: SALINE FLUSH Last Admin: 01/19/19 11:36 Dose: 20 ml Documented by: Tamsulosin HCl (Flomax) 0.4 mg PO DAILY@0830 [facility] Discharge Diet: Low fat/ Low Cholesterol Discharge Activity: Return to Normal Activity May shower in (days): 1 - No tub baths for 5 days May resume sexual activity in: 1-2 weeks Call your doctor if your incision/area has: Continuous Slow Oozing, Sudden Increased Bleeding, Increased Pain/ Swelling, Increased Redness, Foul Smelling Discharge, Swelling at the incision site Call your doctor if you observe: Fever of 101 or Higher, Shortness of breath, Chest pain Remove Dressing in (days):: 1 Cleanse incision/area with: Soap & Water Home Medications: Medications to take at Discharge aspirin 81 mg tablet,delayed release 81 mg PO QDAY 07/15/17 dutasteride 0.5 mg capsule 0.5 mg PO .3WEEK cap 07/15/17 nitroglycerin 0.4 mg sublingual tablet 0.4 mg SUBLINGUAL Q5-15M PRN 07/15/17 clopidogrel 75 mg tablet 75 mg PO QDAY #90 tab 07/30/18 simvastatin 80 mg tablet 80 mg PO QPM #90 tab 07/30/18 metoprolol tartrate 25 mg tablet 12.5 mg PO BID #90 tab 10/05/18 tamsulosin 0.4 mg capsule 0.4 mg PO DAILY 01/12/19 lisinopril 5 mg tablet 5 mg PO DAILY #90 tab 01/20/19 Other Amb Orders: Phase II, Outpatient Cardiac Rehab Location: None Selected Primary Care Physician: Froilan Cain MD [Primary Care Provider] - Please Follow Up With: Dr. Sigala When: 02/14/2019 at 11:15 Additional Instructions: You will continue with Aspirin therapy. You will continue with Plavix therapy for at least one year. If anyone asks you to stop your Plavix, please call the [facility] at [phone]. You are scheduled for an office appointment with Dr. Sigala on 02/14/2019 at 11:15. Please keep this appointment. Cardiac rehab may call you before your office appointment to set up an interview. We recommend you participate in cardiac rehab. If you have any questions or concerns, please call the [facility] at [phone]. Disposition: Home Minutes spent on discharge:: 45 Patient Condition:: Stable Medical Necessity - Tobacco Use Smoking Status: Never smoker Meaningful Use Info Meaningful Use Diagnoses (Choose all that apply): None applicable
== END 2019-01-20 10:35 | disposition home or self-care (01) ==
LOC: CLSP 06:59 → ICU 10:09
PROVIDERS: Internal Medicine Cardiovascular Disease; Physician Assistant Medical; Family Provider Family Medicine; PCP Family Medicine; Referring Provider Internal Medicine Cardiovascular Disease; Visit Provider Internal Medicine Cardiovascular Disease
DX: I25.110 Atherosclerotic heart disease of native coronary artery with unstable angina pectoris (principal); I25.5 Ischemic cardiomyopathy; I25.2 Old myocardial infarction; I10 Essential (primary) hypertension; I65.23 Occlusion and stenosis of bilateral carotid arteries; I73.9 Peripheral vascular disease, unspecified; E78.00 Pure hypercholesterolemia, unspecified; Z95.5 Presence of coronary angioplasty implant and graft; Z79.82 Long term (current) use of aspirin; Z79.899 Other long term (current) drug therapy
CPT/HCPCS: 36415; 71046; 80048; 80053; 80061; 80076; 85025; 85027; 85347; 85610; 85730; 92921; 92928; 93005; 93458; 93571; 99152; 99153; J0153; J7030; A4216; C1725; C1769; C1874; C1887; C9600; Q9967

== ENCOUNTER → 2019-05-16 15:19 | Outpatient (CLI) | payer MEDICARE, SELFPAY ==
[2019-01-19 13:30] VITALS: BMI 22.9
[2019-02-14 11:11] VITALS: BMI 23.0
--- NOTE | 2019-05-16 15:22 | RAD_ITS ---
STUDY: X-RAY - LUMBAR SPINE REASON FOR EXAM: Male, 79 years old. Back pain TECHNIQUE: 5 view(s) of the lumbar spine were obtained. COMPARISON: None FINDINGS: Normal lumbar lordosis. There is no substantial scoliosis. There is a normal alignment of the vertebrae. There is multilevel endplate spondylosis of the lumbar vertebrae. There is multi-level degenerative disc disease with multi-level disc space narrowing. Grade 1 anterolisthesis L4 on L5. Facet arthropathy L5-S1, L4-5, L3-1. There is atherosclerotic calcification of the abdominal aorta with a demonstrated aneurysm. RAD/L/S Spine Min 4 Views IMPRESSION: Diffuse degenerative changes, facet arthropathy, grade 1 anterolisthesis L4 on L5, arteriosclerosis and infrarenal abdominal aortic aneurysm are stable findings. Electronically Signed: Makenzie Franklin MD at 6:10 EDT , Service support ,
== END ==
PROVIDERS: PCP Family Medicine; Referring Provider Family Medicine; Visit Provider Family Medicine
DX: M54.9 Dorsalgia, unspecified (principal)
CPT/HCPCS: 72110

== ENCOUNTER → 2019-06-21 11:37 | Outpatient (CLI) | payer MEDICARE, SELFPAY ==
[2019-01-19 13:30] VITALS: BMI 22.9
[2019-02-14 11:11] VITALS: BMI 23.0
[2019-06-21 12:37] LABS: PSA,Total - Annual Screen 2.57 ng/mL (0.00-4.00)
== END ==
PROVIDERS: PCP Family Medicine; Referring Provider Urology; Visit Provider Urology
DX: Z12.5 Encounter for screening for malignant neoplasm of prostate (principal)
CPT/HCPCS: 36415; 84153; G0103

== ENCOUNTER → 2019-07-13 08:45 | Outpatient (CLI) | payer MEDICARE, SELFPAY ==
[2019-01-19 13:30] VITALS: BMI 22.9
[2019-02-14 11:11] VITALS: BMI 23.0
--- NOTE | 2019-07-13 08:51 | ART_ITS ---
Reason For Study: Atherosclerosis Procedure A bilateral lower extremity continuous wave Doppler with analog waveform analysis and ankle brachial indexes. Left Segmental Pressures Left brachial= 150mmHg. Left posterior tibial artery = 168mmHg. Left dorsalis pedis artery = 151mmHg. Left digit = 116 mmHg. The left dorsalis pedis waveforms are biphasic. The left posterior tibial artery waveforms are triphasic. Right Segmental Pressures Right brachial= 158mmHg. Right posterior tibial artery = 149mmHg. Right dorsalis pedis artery = 151mmHg. Right digit = 110 mmHg. The right dorsalis pedis waveforms are biphasic. The right posterior tibial artery waveforms are biphasic. Indices The right ankle brachial index by the dorsalis pedis is 0.96. The right ankle brachial index by the posterior tibial artery is 0.94. The right digital-brachial index is 0.70. The left ankle brachial index by the dorsalis pedis is 0.96. The left ankle brachial index by the posterior tibial artery is 1.06. The left digital-brachial index is 0.73. Interpretation Summary No significant occlussive disease at rest with YANI 0.96 and 1.06 and DBI 0.7 and 0.73. Ordering Physician: Jeb Chapman Referring Physician: Froilan Cain Performed By: Aissatou Doyle RVT
--- NOTE | 2019-07-13 08:51 | CDU_ITS ---
Reason For Study: Carotid stenosis Rt. Velocities/BP Lt. Velocities/BP Prox CCA 82.6/23.9 cm/sec. Prox CCA 104.7/23.4 cm/sec. Mid CCA 87.8/18.6 cm/sec. Mid CCA 97/26.7 cm/sec. Dist CCA 78.6/23.9 cm/sec. Dist CCA 86/24.5 cm/sec. Prox ICA 166.8/46.2 cm/sec. Prox ICA 75.4/17 cm/sec. Mid ICA 148.5/38.9 cm/sec. Mid ICA 101/31.6 cm/sec. Dist ICA 112.1/33.5 cm/sec. Dist ICA 108.3/37.1 cm/sec. Rt. ICA/CCA = 2.0. Lt. ICA/CCA = 1.1. Prox ECA 150.3/11.5 cm/sec. Prox ECA 228.7/16.33 cm/sec. Rt. Vert. 26.5 cm/sec. Lt. Vert. 54.2/16.8 cm/sec. Right Extracranial There is homogeneous, smooth atherosclerotic plaque noted in the right common carotid artery. There is heterogeneous, irregular atherosclerotic plaque noted in the right internal carotid artery. There is heterogeneous, irregular atherosclerotic plaque noted in the right external carotid artery. Antegrade flow is noted in the right vertebral artery. Abnormal waveform noted in the right vertebral artery. Left Extracranial There is homogeneous, smooth atherosclerotic plaque noted in the left common carotid artery. There is homogeneous, smooth atherosclerotic plaque noted in the left internal carotid artery. There is heterogeneous, irregular atherosclerotic plaque noted in the left external carotid artery. Antegrade flow is noted in the left vertebral artery. Procedure Carotid Duplex [id number]. Exam performed in department. Interpretation Summary Moderate (50-69%) stenosis right extracranial internal carotid. Mild (<50%) stenosis left extracranial internal carotid. Flow within the vertebral arteries is antegrade bilaterally. Ordering Physician: Jeb Chapman Referring Physician: Froilan Cain Performed By: Aissatou Doyle RVT
--- NOTE | 2019-07-13 08:56 | AAVD_ITS ---
Reason For Study: Atherosclerosis Aorta Measurements Aorta Doppler Measurements Proximal aorta measures1.67 x 1.65cm. in cross- Peak systolic flow velocities within the proximal sectional axis. aorta measure 79.6 cm/sec. Proximal aorta measures1.66cm. in longitudinal Peak systolic flow velocities within the mid aorta axis. measure 125.3 cm/sec. Mid aorta measures2.78 x 2.75cm. in cross- Peak systolic flow velocities within the distal sectional axis. aorta measure 159.7 cm/sec. Mid aorta measures2.58cm. in longitudinal axis. Distal aorta measures3.27 x 3.26cm. in cross- sectional axis. Distal aorta measures3.29cm. in longitudinal axis. Left Iliac Artery Left iliac artery measures 0.97 x 0.92 cm. in the cross-sectional axis. Left iliac artery measures 1.05 cm. in the longitudinal axis. Peak systolic velocity in the left iliac artery measures 125.9 cm/sec. Right Iliac Artery Right iliac artery measures 1.22 x 1.20 cm. in the cross-sectional axis. Right iliac artery measures 1.22 cm. in the longitudinal axis. Peak systolic velocity in the right iliac artery measures 94.8 cm/sec. Procedure Aorta IVC Iliac vasculature or bypass grafts [id number]. Exam performed in department. Interpretation Summary Aortic aneurysm 3.3cm. No aortoiliac stenosis. Ordering Physician: Jeb Chapman Referring Physician: Froilan Cain Performed By: Aissatou Doyle RVT
== END ==
PROVIDERS: PCP Family Medicine; Referring Provider Surgery Vascular Surgery; Visit Provider Surgery Vascular Surgery
DX: I71.4 Abdominal aortic aneurysm, without rupture (principal); I65.23 Occlusion and stenosis of bilateral carotid arteries; I70.213 Atherosclerosis of native arteries of extremities with intermittent claudication, bilateral legs
CPT/HCPCS: 93880; 93922; 93978

== ENCOUNTER 2019-09-13 07:30 | Outpatient (RCR) | payer MEDICARE, SELFPAY ==
[2019-01-19 13:30] VITALS: BMI 22.9
[2019-02-14 11:11] VITALS: BMI 23.0
--- NOTE | 2019-05-24 13:26 | HP.PTEVAL ---
Patient's Visit Information BARRY VERGARA is a 79 year old M referred to Physical Therapy by Froilan Cain MD with a diagnosis of DORSALGIA. Date of Evaluation: 05/24/19 Physical Therapist: Rafa House PT, Cert MDT, OCS - Visit Plan Frequency: 2x /Week Duration: 4 Weeks Plan: PT INTERVENTIONS DLS ABD/BACK,POSTURAL EX'S,LE FLEXABLITY ,STRENGTHENING ,MODALTIES NEEDED - Subjective Subjective: This 79 y/o male presents to physical therapy with lumbar pain . Patient has had lumbar pain 3 weeks lifting box full of books developed immediate pain. Patient had to use FWW due to pain past 2weeks. Then called chiropractor. Then seen Family DR recommeded PT and x-rays showed mild spondylothesis graded 1 ,DDD . Patient was provided predisone,muscle relaxer . Patient pain located right lateral leg.Aggraveting factors standing ,walking,bending,lifting. Symptoms better with sitting.Bowel/bladder -. Coughing/sneezing-. Denies parathesia/tingling. Symptoms affect sleeping. Patient pain affects housework tasks,ADL's. Patient requires use of walker. Patient symptoms affects QOL. SOCIAL: . VOCATION : retired - Pain Bilateral Ankle Pain Intensity (Out of 10): 5 - Objective POSTURE:mild foward posture ,flat lumbar spine. PALAPTION: tender L-S erector. NEURO: denies parathesia/tingling,reflexes L3-4,L4-5,L5-S1 1/3. SYMMTRIES: align. GAIT: reciprocal pattern foward posture trunk. FLEXABLITY: hams mod tight. MMT: quads/hams 4-/5,hip flexion 4-/5 ankle 4/5. LUMBAR ROM: flexion min/mod loss,severe loss extension,mod side glides - Special Tests L/S Slump test left side: Negative L/S Slump test right side: Negative L/S Left Straight Leg Raise: Negative L/S Right Straight Leg Raise: Negative Lumbar Standing: Flexion - Mechanical Response: No effect Lumbar Standing: Flexion - Symptoms During Testing: No effect Lumbar Standing: Flexion - Symptoms After Testing: No effect Lumbar Standing: Extension - Mechanical Response: No effect Lumbar Standing: Extension - Symptoms During Testing: Increases Lumbar Standing: Extension - Symptoms After Testing: Worse Lumbar Standing: Right Side Glides - Mechanical Response: No effect Lumbar Standing: Right Side [place] - Symptoms During Testing: No effect Lumbar Standing: Right Side [place] - Symptoms After Testing: No effect Lumbar Standing: Left Side [place] - Mechanical Response: No effect Lumbar Standing: Left Side [place] - Symptoms During Testing: No effect Lumbar Standing: Left Side [place] - Symptoms After Testing: No effect - Goals Goal 1:: Patient be I with HEP Goal Time Frame: 4-6 Weeks Goal 2:: Patient to improve lumbar ROM for function of recovery Goal Time Frame: 4-6 Weeks Goal 3:: Patient to decrease back pain by 50% or > to improve function with ADLS' Goal Time Frame: 4-6 Weeks Goal 4:: Patient to ambulate with no device community distance Goal Time Frame: 4-6 Weeks Goal 5:: Patient improve back owestry score by 5 points or > to improve QOL. Goal Time Frame: 4-6 Weeks - Rehabilitation Potential Physical Therapy Diagnosis: This patient has lumbar pain possible from stenosis lateral due to injury with poor lumbar ROM,strength,pain impairs ADLS' function with walking and standing and needs FWW for mobility thus benifit from skilled PT. Rehabilitation Potential: Good - Anticipated Interventions Thank you for the opportunity to evaluate your patient. For Medicare and Medicare HMO plans, please review the plan of care and approve it. It will need to be FAXED BACK to us at [phone] for Medicare purposes. For Medicare only, by signing this I certify the plan of care. Please let me know if there are questions or concerns regarding this plan of care. Physician Signature: Date:
--- NOTE | 2019-07-05 14:08 | HP.PTREVAL_ITS ---
Froilan Cain MD, It has been my pleasure to treat BARRY VERGARA over the last 9 visits for DORSALGIA. Please see the progress note below for an update on the physical therapy plan of care! Subjective: Did alot of mowing yesterday for 1 1/2 hrs Objective/Function: POSTURE: mild foward posture. GAIT: ambulates with cane commuity distance able to ambulate without cane antailgic gait. NEURO: denies parathesia/tingling ,reflexes L3-4,L4-5 1/3. MMT: quads/hams/hip RIGHT 4- /5,quads/hams/hip 4/5 left. LUMBAR ROM: flexion mod loss ,extension mod/severe loss,side glides mod loss. FLEXABLITY: hams mod tight Plan Plan: PT INTERVENTIONS DLS ABD/BACK,POSTURAL EX'S, LE FLEXIBILITY, STRENGTH ENING, MODALITIES NEEDED Goals Goal 1:: Patient be I with HEP Goal Time Frame: 4-6 Weeks Goal Progress: Goal Met Goal 2:: Patient to improve lumbar ROM for function of recovery Goal Time Frame: 4-6 Weeks Goal Progress: Progressing Goal 3:: Patient to decrease back pain by 50% or > to improve function with ADLS' Goal Time Frame: 4-6 Weeks Goal Progress: Progressing Goal 4:: Patient to ambulate with no device community distance Goal Time Frame: 4-6 Weeks Goal Progress: Progressing Goal 5:: Patient improve back owestry score by 5 points or > to improve QOL. Goal Time Frame: 4-6 Weeks Goal Progress: Progressing Anticipated Interventions Please do not hesitate to contact me at [phone] by phone or if you have questions or concerns regarding this new plan of care! Sincerely, Rafa House, PT, Cert MDT, OCS
--- NOTE | 2019-08-12 11:02 | HP.PTREVAL ---
Dr. Froilan Cain MD, It has been my pleasure to treat BARRY VERGARA over the last 20 visits for DORSALGIA. Please see the progress note below for an update on the physical therapy plan of care! Subjective: Patient seems t get better able to walk further ,even without cane..in thigh -right Objective/Function: POSTURE: mild foward posture. GAIT: mild foward posture reciprocal pattern without cane short distance ,but extensded uses cane. FLEXABLITY: hams mild tight. MMT: quads/hams 4/5,hip flexion 4-/5,ankld 4/5 Plan Plan: CONT WITH POC 2XWEEK FOR 4WKS PT INTERVENTIONS DLS ABD/BACK,POSTURAL EX'S, LE FLEXIBILITY, STRENGTHENING, MODALITIES NEEDED Goals Goal 1:: Patient be I with HEP Goal Time Frame: 4-6 Weeks Goal Progress: Goal Met Goal 2:: Patient to improve lumbar ROM for function of recovery Goal Time Frame: 4-6 Weeks Goal Progress: Progressing Goal 3:: Patient to decrease back pain by 60% or > to improve function with ADLS'(updated) Goal Time Frame: 4-6 Weeks Goal Progress: Progressing Goal 4:: Patient to ambulate with no device community distance Goal Time Frame: 4-6 Weeks Goal Progress: Progressing Goal 5:: Patient improve back owestry score by 7-10 points or > to improve QOL.(update) Goal Time Frame: 4-6 Weeks Goal Progress: Progressing Anticipated Interventions Please do not hesitate to contact me at [phone] by phone or if you have questions or concerns regarding this new plan of care! Sincerely, Rafa House, PT, Cert MDT, OCS
--- NOTE | 2019-09-13 07:58 | HP.PTDCSUM ---
It has been my pleasure to treat BARRY VERGARA referred by Dr. Froilan Cain MD, with the diagnosis of DORSALGIA for a total of 28 visit(s). Discharge Date: 09/13/19 Please see the following information for a summary of their discharge status. Subjective: Doing good. Back to most activites . Bilateral Ankle Pain Intensity (Out of 10): 0 Bilateral Back Pain Intensity (Out of 10): 0 Right Lower Extremity Pain Intensity (Out of 10): 1 % Improvement: 70 Objective/Function: POSTURE: mild foward posture. GAIT: reciprocal pattern mild foward posture. MMT: quads/hams 4/5,hip 4/5,ankle 4/5. LUMBAR ROM: flexion min/mod loss,extension min/mod lss Goal 1:: Patient be I with HEP Goal Progress: Goal Met Goal 2:: Patient to improve lumbar ROM for function of recovery Goal Progress: Goal Met Goal 3:: Patient to decrease back pain by 60% or > to improve function with ADLS'(updated) Goal Progress: Goal Met Goal 4:: Patient to ambulate with no device community distance Goal Progress: Goal Met Goal 5:: Patient improve back owestry score by 7-10 points or > to improve QOL.(update) Goal Progress: Goal Met Plan: D/C TO HEP AND GYM Discharge Comments: HEP If there are questions or concerns regarding this patient's physical therapy, please feel free to call me at [phone]. Thank you for the referral of this patient. Sincerely, Rafa House, PT, Cert MDT, OCS
== END 2019-09-13 19:00 | disposition home or self-care (01) ==
LOC: PT 07:30
PROVIDERS: PCP Family Medicine; Referring Provider Family Medicine; Visit Provider Family Medicine
DX: M54.9 Dorsalgia, unspecified (principal); Z12.5 Encounter for screening for malignant neoplasm of prostate
CPT/HCPCS: 36415; 84153; 97014; 97110; 97162; 97530; G0103; G0283

== ENCOUNTER → 2019-09-14 09:23 | Outpatient (CLI) | payer MEDICARE, SELFPAY ==
[2019-01-19 13:30] VITALS: BMI 22.9
[2019-09-08 09:30] VITALS: BMI 23.1
[2019-09-14 10:11] LABS: AST(SGOT) 19 U/L (15-37); Alanine Aminotransfer ALT/SGPT 21 U/L (16-61); Albumin, Serum 3.5 g/dL (3.2-5.0); Alkaline Phosphatase 66 U/L (45-117); Bilirubin, Direct 0.27 mg/dL (0.00-0.30); Cholesterol 139 mg/dL (200); High Density Lipoprotein 43 mg/dL; Protein, Total 6.5 g/dL (6.4-8.2); Triglycerides 58 mg/dL; Very Low Density Lipoprotein 12 mg/dL (5-40)
== END ==
PROVIDERS: PCP Family Medicine; Referring Provider Nurse Practitioner Family; Visit Provider Nurse Practitioner Family
DX: I25.10 Atherosclerotic heart disease of native coronary artery without angina pectoris (principal); E78.00 Pure hypercholesterolemia, unspecified; I65.23 Occlusion and stenosis of bilateral carotid arteries; Z95.5 Presence of coronary angioplasty implant and graft
CPT/HCPCS: 36415; 80061; 80076

== ENCOUNTER → 2020-04-25 09:04 | Outpatient (CLI) | payer MEDICARE, SELFPAY ==
[2019-01-19 13:30] VITALS: BMI 22.9
[2020-04-20 09:54] VITALS: BMI 22.7
[2020-04-25 09:55] LABS: AST(SGOT) 23 U/L (15-37); Alanine Aminotransfer ALT/SGPT 22 U/L (16-61); Albumin, Serum 3.7 g/dL (3.2-5.0); Alkaline Phosphatase 83 U/L (45-117); Cholesterol 148 mg/dL (200); High Density Lipoprotein 47 mg/dL; Protein, Total 6.7 g/dL (6.4-8.2); Triglycerides 76 mg/dL; Very Low Density Lipoprotein 15 mg/dL (5-40)
== END ==
PROVIDERS: PCP Family Medicine; Referring Provider Internal Medicine Cardiovascular Disease; Visit Provider Internal Medicine Cardiovascular Disease
DX: E78.00 Pure hypercholesterolemia, unspecified (principal)
CPT/HCPCS: 36415; 80061; 80076

== ENCOUNTER → 2020-05-11 08:15 | Outpatient (CLI) | payer MEDICARE, SELFPAY ==
[2019-01-19 13:30] VITALS: BMI 22.9
[2020-04-20 09:54] VITALS: BMI 22.7
[2020-05-11 09:58] LABS: Anion Gap 5 (5-15); BUN 18 mg/dL (7-18); BUN/Creat Ratio 20.4 RATIO (10-20); Calcium,Total 8.8 mg/dL (8.5-10.1); Chloride 110 mmol/L (98-107); Creatinine, Serum 0.88 mg/dL (0.70-1.30); EST Glomerular Filtration Rate 89 mL/min (>60); Est Glom Filt Rate - Afr Amer 107 mL/min (>60); Glucose 109 mg/dL (74-106); Potassium 4.2 mmol/L (3.5-5.1); Sodium Level 143 mmol/L (136-145)
== END ==
PROVIDERS: PCP Family Medicine; Visit Provider Family Medicine
DX: Z00.00 Encounter for general adult medical examination without abnormal findings (principal)
CPT/HCPCS: 36415; 80048

== ENCOUNTER → 2020-06-21 09:37 | Outpatient (CLI) | payer MEDICARE, SELFPAY ==
[2019-01-19 13:30] VITALS: BMI 22.9
[2020-04-20 09:54] VITALS: BMI 22.7
[2020-06-21 11:37] LABS: PSA,Total- Diagnostic 1.66 ng/mL (0.0-4.0)
== END ==
PROVIDERS: PCP Family Medicine; Referring Provider Urology; Visit Provider Urology
DX: R97.20 Elevated prostate specific antigen [PSA] (principal)
CPT/HCPCS: 36415; 84153

== ENCOUNTER → 2020-07-16 | Outpatient (CLI) | payer MEDICARE, SELFPAY ==
[2019-01-19 13:30] VITALS: BMI 22.9
[2020-04-20 09:54] VITALS: BMI 22.7
--- NOTE | 2020-07-16 08:00 | PROSBIL_PTH ---
PATIENT: BARRY VERGARA LOC: [facility] U#:[id number] AGE/SX: 80/M ROOM: RE07/16/[address]: Dr. Jakub Bolivar MD : 1940 BED: DIS: 07/16/2020 SPEC #: [id number] RECD: 07/16/20 15:00 STATUS: IRA KACEY #: [id number] CASS: 07/16/20 08:[address]: Jakub Bolivar DEPT: SURGICAL PATHOLOGY RECD BY: Sharon Silva ENTERED: 07/17/20 09:55 SP TYPE: PROST BX MARIO DR: Dr. Froilan Cain MD Tissues: A - PROSTATE RIGHT B - PROSTATE RIGHT C - PROSTATE RIGHT D - PROSTATE LEFT E - PROSTATE LEFT F - PROSTATE LEFT Procedures: PROSTATE BX HEADER OPERATION: Prostate biopsy PRE-OP DIAGNOSIS: Z12.5 TISSUE SUBMITTED: A - Right apex, B - Right mid, C - Right base, D - Left apex, E - Left mid, F - Left base MICROSCOPIC DIAGNOSIS A. Right prostate, apex, core biopsy: Prostatic tissue, negative for malignancy. B. Right prostate, mid, core biopsy: Focal high-grade prostatic intraepithelial neoplasia (HGPIN). Focal mild chronic inflammation. C. Right prostate, base, core biopsy: Prostatic tissue, negative for malignancy. Focal mild chronic inflammation. D. Left prostate, apex, core biopsy: Prostatic tissue, negative for malignancy. E. Left prostate, mid, core biopsy: Prostatic tissue, negative for malignancy. F. Left prostate, base, core biopsy: Prostatic tissue, negative for malignancy. SJ:malia 07/18/2020 MICROSCOPIC DESCRIPTION Slides are reviewed. GROSS DESCRIPTION A - Received is one container designated prostate, right apex. The specimen consists of one elongated fragment of light parisi-white soft tissue measuring 1.5 cm in length and 0.1 cm in diameter. The specimen is totally submitted in one cassette. B - Received is one container designated prostate, right mid. The specimen consists of one elongated fragment of light par[place]-white soft tissue measuring 1.5 cm in length and 0.1 cm in diameter. The specimen is totally submitted in one cassette. C - Received is one container designated prostate, right base. The specimen consists of one elongated fragment of light par[place]-white soft tissue measuring 1.2 cm in length and 0.1 cm in diameter. The specimen is totally submitted in one cassette. D - Received is one container designated prostate, left apex. The specimen consists of one elongated fragment of light par[place]-white soft tissue measuring 1.5 cm in length and 0.1 cm in diameter. The specimen is totally submitted in one cassette. E - Received is one container designated prostate, left mid. The specimen consists of one elongated fragment of light parisi-white soft tissue measuring 1.5 cm in length and 0.1 cm in diameter. The specimen is totally submitted in one cassette. F - Received is one container designated prostate, left base. The specimen consists of one elongated fragment of light parisi-white soft tissue measuring 1.5 cm in length and 0.1 cm in diameter. The specimen is totally submitted in one cassette. / SJ:rg 07/17/20 TC:5 CPT: G0146
== END | disposition home or self-care (01) ==
LOC: LABSPEC 16:16
PROVIDERS: PCP Family Medicine; Referring Provider Urology; Visit Provider Urology
DX: Z12.5 Encounter for screening for malignant neoplasm of prostate (principal)
CPT/HCPCS: 88305; G0416